=== PATIENT | female | born 1955 | race Caucasian/White ===

== ENCOUNTER 2020-10-15 14:09 | Emergency (ER) | payer BC, SELFPAY ==
[2020-10-15 14:14] VITALS: BP 165/86; PULSE 86; RESP 18; TEMP 36.8; O2SAT 97; BMI 26.0
[2020-10-15 14:19] VITALS: BP 165/90; PULSE 86; RESP 16; O2SAT 97
--- NOTE | 2020-10-15 14:47 | XRR_ITS ---
PROCEDURE INFORMATION: Exam: XR Right Finger(s) Exam date and time: 10/15/2020 3:15 PM Age: 64 years old Clinical indication: Injury or trauma; Other: Mashed; Crushing; Right; Little finger; Additional info: Trauma to pinky nail TECHNIQUE: Imaging protocol: XR Right fingers. Views: Minimum 2 views. COMPARISON: No relevant prior studies available. FINDINGS: Bones/joints: There is severe osteopenia and moderate osteoarthritis seen. An avulsion fracture is seen involving the distal aspect of the distal phalange. Narrowing of the interphalangeal joint spaces are present at multiple levels. These findings correspond to osteoarthritis Soft tissues: Normal. XR/XR finger RT min 2V [id number] IMPRESSION: 1. Avulsion fracture distal phalange of the 5th digit 2. Severe osteopenia and osteoarthritis .
--- NOTE | 2020-10-15 14:50 | ED_ITS ---
HPI - Wound/Laceration General: Chief Complaint: Wound/Laceration Stated Complaint: Smashed finger Time Seen by Provider: 10/15/20 14:23 History of Present Illness: HPI narrative: Patient was pulling nails in the hammer and got her right pinky between the back the hammer and the board and sustained a laceration across the nail. Onset (ago): hour(s) Extremity Location: Right: hand Place: home Patient tetanus UTD: No Context: accidental Associated symptoms: Reports no associated symptoms; Denies chills or fever(s) Review of Systems Const: Denies: fever(s) or chills Skin/Breast: Reports: other (Laceration right pinky) Psych: Denies: anxiety or depression Physical Exam Const: COMMON NORMALS: no acute distress Psych: COMMON NORMALS: mental status grossly normal Skin: OTHER: Quarter inch laceration across the right pinky lateral aspect across the mid nail extending into the tissue. Closed with glue and put nail back in place under glue and wrapped with Coban distal neurovascular intact Procedures Laceration Laceration 1: Site: hand Side (If applicable): right Size (cm): 1 Description: linear Depth: simple, single layer Skin layer closed with: other (Skin adhesive) Course Vital Signs: Vital signs: Vital Signs Temperature 98.2 F 10/15/20 14:14 Pulse Rate 86 10/15/20 14:19 Respiratory Rate 16 10/15/20 14:19 Blood Pressure 165/90 10/15/20 14:19 Pulse Oximetry 97 10/15/20 14:19 MDM - Wound/Laceration MDM Narrative: Medical decision making narrative: Patient has a fracture distal tuft of the pinky finger on that right hand. Laceration was closed with skin adhesive and dressing due to being an open fracture. Patient was placed on antibiotics. Plan was made with orthopedics for follow-up care. Patient had splint applied and wear splint until seen by orthopedics. Discharge Plan Discharge Patient Disposition: Home Clinical Impression: Laceration Fracture of finger of right hand Qualifiers: Encounter type: initial encounter Finger: little finger Fracture type: closed Phalanx: distal Fracture alignment: displaced Qualified Code(s): S62.636A - Displaced fracture of distal phalanx of right little finger, initial encounter for closed fracture Condition: Stable Prescriptions: New Keflex 500 mg capsule 500 mg PO TID 7 Days Qty: 21 RF: 0 Discharge Orders: Discharge ED (Routine); Ordered 10/15/20 Ordered By: Sang Sharpe Discharge Diet: Usual diet Discharge Activity: Increase activity as tolerated Patient Instructions: Finger Fracture (ED), Skin Adhesive Care (ED) Activity Restrictions/Additional Instructions: Keep dressing on can change every 24 hours. Await appointment for orthopedics for follow-up care. Take medication as directed. Can take Tylenol and ibuprofen for pain. Coding Level of Care Code ED Family Law Attorney for Chg Fwd Exam Expanded Problem Focused
[2020-10-15] MEDS: tetanus-dipt-pertussis 0.5 mL SDV IM (14:55)
--- NOTE | 2020-10-16 09:53 | DCPLANNER ---
manager of creative services had message to schedule a follow up appointment for patient with ortho. manager of creative services called the ortho clinic, spoke with Liz, gave clinic patients information. manager of creative services was told that patients information would be printed and reviewed. Clinic will call patient with appointment information.
--- NOTE | 2020-10-23 12:00 | DCPLANNER ---
manager adult called the ortho clinic to confirm that a follow up appointment had been scheduled for patient. manager adult was told that clinic was unable to speak with patient, and no voicemail set up. manager adult called and spoke with patient, she stated that her finger was doing better, and did not feel like she needed an appointment at this time.
== END 2020-10-15 15:37 | disposition home or self-care (01) ==
PROVIDERS: Emergency Provider Nurse Practitioner Family
DX: S62.636B Displaced fracture of distal phalanx of right little finger, initial encounter for open fracture (principal); W23.0XXA Caught, crushed, jammed, or pinched between moving objects, initial encounter; Z23 Encounter for immunization
CPT/HCPCS: 12001; 12002; 12345; 29130; 73140; 90471; 90715; 99281; 99283; A6446

== ENCOUNTER 2020-12-27 10:26 | Outpatient (CLI) | payer BC, SELFPAY ==
--- NOTE | 2020-12-27 10:30 | XR_ITS ---
WS: [id number] KNEE LEFT TECHNIQUE: 3 views of the left knee CLINICAL INFORMATION: left medial knee pain COMPARISON: None. FINDINGS: Osteopenia. Mild joint space narrowing medial joint compartment. Hypertrophic changes along the joint line. Hypertrophic patella. Small suprapatellar effusion. Mild soft tissue edema. XR/XR knee LT 3V* [id number] IMPRESSION: 1. Mild joint space narrowing medial joint compartment and patellofemoral aly culation. Hypertrophic patella. 2. Small suprapatellar effusion with soft tissue edema.
== END 2020-12-27 10:27 | disposition home or self-care (01) ==
LOC: RADWPI 10:44
PROVIDERS: PCP Family Medicine; Visit Provider Family Medicine
DX: M25.562 Pain in left knee (principal); M25.462 Effusion, left knee; R60.0 Localized edema
CPT/HCPCS: 73562

== ENCOUNTER 2021-01-15 08:32 | Outpatient (RCR) | payer BC, SELFPAY | END 2021-01-25 23:59 | disposition home or self-care (01) | LOC: SPT 08:32 | PROVIDERS: PCP Family Medicine; Referring Provider Family Medicine; Visit Provider Family Medicine | DX: M25.562 Pain in left knee (principal) | CPT/HCPCS: 97110; 97161 ==

== ENCOUNTER 2021-02-04 14:31 | Outpatient (CLI) | payer BC, SELFPAY ==
--- NOTE | 2021-02-04 17:30 | MR_ITS ---
WS: [id number] MRI LEFT KNEE HISTORY: lateral knee pain COMPARISON: 12/27/2020 radiographs. Anterior cruciate ligament: Abnormal signal throughout the ACL. There are a few anterior fibers remai nuzhat but there is no significant intact ligament. Posterior cruciate ligament: Intact. Medial collateral ligament: Mild increased signal surrounding the MCL and a small amount of intrasubs tance degeneration and signal proximally. Posterior lateral corner structures: Intact. Medial menisci: Complex tear posterior horn with marked fraying along the surfaces. Additional abnorm al signal in the anterior horn and intrasubstance degeneration. I believe there is a horizontal tear extending to the superior articular surface. Lateral meniscus: No tear. Extensor mechanism: Distal quadriceps tendon and patellar tendons are intact. Fluid and soft tissue: Moderate-sized joint effusion. There is soft tissue edema. Small Pearson's cyst contains small loose bodies. Osseous and articular structures: Patellofemoral compartment: Mild narrowing of patellofemoral joint space with osteophytes. Mild chond romalacia of the patella cartilage. No full-thickness defect or marrow edema. Medial compartment: Severe narrowing of the medial joint compartment. Complete loss of cartilage with marrow edema and osteophytes. Small subchondral defect in the medial condyle. Lateral compartment: Moderate narrowing of the lateral compartment with moderate-sized osteophytes. T hinning and fissuring of the cartilage with a 6 mm defect in the cartilage of the tibial plateau. MR/MR knee LT wo con* [id number] IMPRESSION: 1. Severe internal derangement medial compartment with severe loss of joint sp raquel, loss of cartilage and abnormal menisci. 2. Moderate internal derangement lateral compartment with mild thinning and fi ssuring of the cartilage. Osteophytes with no meniscal tear. 3. Torn ACL. 4. Mild MCL sprain. 5. Moderate joint effusion 6. Small Pearson's cyst with loose bodies.
== END 2021-02-04 14:32 | disposition home or self-care (01) ==
LOC: RADSHAW 14:32
PROVIDERS: PCP Family Medicine; Visit Provider Family Medicine
DX: M25.562 Pain in left knee (principal); M71.22 Synovial cyst of popliteal space [Baker], left knee; M25.462 Effusion, left knee; S83.412A Sprain of medial collateral ligament of left knee, initial encounter; S83.512A Sprain of anterior cruciate ligament of left knee, initial encounter; X58.XXXA Exposure to other specified factors, initial encounter; M23.92 Unspecified internal derangement of left knee
CPT/HCPCS: 73721

== ENCOUNTER → 2021-02-21 09:23 | Outpatient (BNVA) | payer BC, SELFPAY | PROVIDERS: PCP Family Medicine; Visit Provider Family Medicine | DX: Z79.891 Long term (current) use of opiate analgesic (principal); F90.8 Attention-deficit hyperactivity disorder, other type; R03.0 Elevated blood-pressure reading, without diagnosis of hypertension | CPT/HCPCS: 80307 ==

== ENCOUNTER → 2021-02-27 08:39 | Outpatient (BNVA) | payer BC, SELFPAY | PROVIDERS: PCP Family Medicine; Visit Provider Specialist | DX: M25.762 Osteophyte, left knee (principal); M25.761 Osteophyte, right knee; M76.52 Patellar tendinitis, left knee; M25.561 Pain in right knee; M25.562 Pain in left knee | CPT/HCPCS: 73560; 73565 ==

== ENCOUNTER → 2021-03-11 09:31 | Outpatient (BNVA) | payer BC, SELFPAY | PROVIDERS: PCP Family Medicine; Visit Provider Specialist | DX: M17.12 Unilateral primary osteoarthritis, left knee (principal); S83.412A Sprain of medial collateral ligament of left knee, initial encounter; S83.512A Sprain of anterior cruciate ligament of left knee, initial encounter; X58.XXXA Exposure to other specified factors, initial encounter; Z20.822 Contact with and (suspected) exposure to COVID-19 | CPT/HCPCS: 87635 ==

== ENCOUNTER 2021-03-15 06:24 | Day surgery (SDC) | payer BC, SELFPAY ==
[2021-03-14 15:54] VITALS: BMI 25.7
[2021-03-15] VITALS (9 sets, daily range): BP systolic 142–167; BP diastolic 84–98; PULSE 63–78; RESP 12–20; TEMP 36.2–36.6; O2SAT 96–99
--- NOTE | 2021-03-15 06:56 | W.PM.OPSUD ---
Surgery/Procedure H&P Update DATE OF PROCEDURE: March 15, 2021 DATE H&P PERFORMED: 02/27/21 H&P UPDATE INFORMATION: I have reviewed H&P completed within last 30 days, I have examined patient prior to procedure, No changes to prior documentation and H&P is in [facility] on date indicated PREOP DIAGNOSIS: Osteoarthritis and medial meniscal tear LEFT knee PLANNED PROCEDURE: Operation Date: 03/15/21 08:10 Proposed Procedures p Knee Arthroscopy with debridement 65994 M17.10 S83.512A S83.412A(Left) - Aicha Joseph MD Related Problem List Diagnoses (1) Tear of medial meniscus of left knee, current: Qualifiers: Encounter type: initial encounter Meniscus tear of knee type: complex Qualified Code(s): S83.232A - Complex tear of medial meniscus, current injury, left knee, initial encounter (2) Osteoarthritis of left knee: Qualifiers: Osteoarthritis type: primary Qualified Code(s): M17.12 - Unilateral primary osteoarthritis, left knee
[2021-03-15] MEDS: acetaminophen 1,000 MG/100 ML PIGGYBACK 400 MG IV (07:05)
[2021-03-15] MEDS: CELEcoxib 200 mg Capsule 400 MG PO (07:06)
[2021-03-15] MEDS: sodium chloride 0.9% 1,000 ML 30 ML IV (07:07)
[2021-03-15 07:13] LABS: Basophils % 0.6 %; Hematocrit 44.6 % (37.0-47.0); Hemoglobin 14.6 g/dL (11.5-15.3); Lymphocytes # 1.5 10^3/uL (0.8-4.8); Lymphocytes % 30.1 %; Mean Corpuscular HGB Conc 32.7 g/dL (30.0-36.0); Mean Corpuscular Hemoglobin 31.1 pg (28.0-34.0); Mean Corpuscular Volume 95.1 fL (81-99); Mean Platelet Volume 11.9 fL (7.4-10.4); Monocytes # 0.4 10^3/uL (0.2-0.9); Monocytes % 7.1 %; Neutrophils # 3.05 10^3/uL (1.8-7.7); Nucleated Red Blood Cells % 0 %; Platelet Count 152 10^3/cmm (130-400); Red Blood Count 4.69 10^6/uL (4.1-5.3); Red Cell Distribution Width 12.2 % (12.1-15.1); White Blood Count 4.9 10^3/uL (4.0-10.0)
--- NOTE | 2021-03-15 07:15 | ANES.PREANE2 ---
Pre-Anesthetic Assessment Pre-Anesthetic Assessment: Height/Weight: Height 1.6 m Weight 65.771 kg Temp Pulse Resp BP Pulse Ox 97.9 F 64 16 150/84 98 03/15/21 06:46 03/15/21 06:46 03/15/21 06:46 03/15/21 06:46 03/15/21 06:46 Preop Diagnosis: Osteoarthritis and medial meniscal tear LEFT knee Proposed Procedure: Operation Date: 03/15/21 08:10 Proposed Procedures p Knee Arthroscopy with debridement 88001 M17.10 S83.512A S83.412A(Left) - Aicha Joseph MD Was Beta Nando taken within 24 hours: N/A Was Clonidine taken within 24 hours: N/A Last intake: Intake Last Liquid Date 03/14/21 Last Liquid Time 18:30 Last Solid Date 03/14/21 Last Solid Time 18:30 Social: Social History: No alcohol and No tobacco Exam: Pre-Anes Outpt Exam: alert, oriented x 3, clear to auscultation bilaterally and regular rate & rhythm Airway: Submandibular: WNL Cervical ROM: WNL MP: 2 Dentition: False and Partials CV/HEM: CV/HEM: HTN Musc/skel: Musc/skel: OA/DJD Neuropsych: Neuropsych: Anxiety and Depression Anesthetic Plan: ASA status: 2 Anesthesia: General Risk of > 500 ml blood loss (7ml/kg in children): No PFSH Anesthesia PFSH: Medical History ADHD Anxiety and depression Surgical History H/O knee surgery Both - arthroscopic - torn meniscus Family History Other Diabetes Social History Smoking and tobacco status: never smoked Alcohol intake: never Data Anesthesia CBC & Chem 7: 03/15/21 06:53 03/15/21 06:53 Other Labs: Laboratory Results - last 48 hr 03/15/21 06:53 WBC 4.9 RBC 4.69 Hgb 14.6 Hct 44.6 MCV 95.1 MCH 31.1 MCHC 32.7 RDW 12.2 Plt Count 152 MPV 11.9 H Neut % (Auto) 62.0 Lymph % (Auto) 30.1 [place] % (Auto) 7.1 Eos % (Auto) 0.0 Baso % (Auto) 0.6 Neut # (Auto) 3.05 Lymph # (Auto) 1.5 [place] # (Auto) 0.4 Eos # (Auto) 0.0 Baso # (Auto) 0.0 Nucleated RBC % (auto) 0 Nucleated RBCs # 0.0 Cardiac Studies: No Data to Display
[2021-03-15 07:28] LABS: Alanine Aminotransferase 30 U/L (0-33); Alkaline Phosphatase 121 IU/L (35-105); Anion Gap 11.8 (5-19); Aspartate Amino Transferase 28 U/L (0-32); Blood Urea Nitrogen 20 mg/dL (8-23); Calcium 8.6 mg/dL (8.5-10.5); Carbon Dioxide 27 mmol/L (22-29); Chloride 106 mmol/L (98-107); Creatinine Clr Calc Pharmacy 87.4915; Globulin 2.4 g/dL (1.3-4.6); Glucose 103 mg/dL (65-115); Osmolality Calculated 295 mOsm/kg (285-295); Potassium 3.8 mmol/L (3.5-5.1); Sodium 141 mmol/L (136-145); Total Bilirubin 0.4 mg/dL (0.15-1.2); Total Protein 6.4 g/dL (6.6-8.7)
[2021-03-15 07:43] LABS: Add Urine Microscopic? NO; Charge for UA Resulting for Rev
[2021-03-15 08:00] LABS: Bilirubin Urine Neg (Negative); Blood Urine Neg (Negative); Glucose Urine UA Norm (Normal); Ketones Urine Negative (Negative); Leukocyte Esterase Urine Negative (Negative); Nitrate Urine Negative (Negative); Protein Urine Neg (Negative); Urine Appearance Clear (CLEAR); Urine Color Yellow (Yellow); Urobilinogen Urine Norm (Negative); pH Urine 5 (5-7)
[2021-03-15] MEDS: morphine 4 mg/mL SDV 1 mL 8 MG IM (09:02)
--- NOTE | 2021-03-15 09:29 | P.OP_ITS ---
Operative Report Date of procedure: March 15, 2021 Pre-op Diagnosis: Osteoarthritis and medial meniscal tear LEFT knee Post-op diagnosis: other Post-op Diagnosis: Osteoarthritis with medial and lateral meniscal tears LEFT knee Post-op Findings: Severe degenerative osteoarthritis of the left knee involving primarily the medial compartment. Also the patellofemoral compartment and lateral compartment were affected. Anterior cruciate ligament with significant thinning and tearing. Procedure Done: Left arthroscopic knee surgery with partial medial and lateral meniscectomies, debridement of osteoarthritis medial, lateral, and patellofemoral compartments. Debridement of torn anterior cruciate ligament. Implants: None Specimens removed/disposition: Meniscal fragments, disposed of Pathology: none sent Surgeon: A[facility] Director: None Anesthesia: General (Per LMA, ASA 2) Estimated blood loss (mL): 5 Tourniquet time (min): 40 Tourniquet time: At 250 mmHg IV fluids (mL): 1,000 Urine output (mL): 0 Urine output: No Phipps Complications: None Findings: Osteoarthritic changes throughout the knee, primarily involving the medial compartment, but also involving the lateral and patellofemoral compartments. Meniscal tears were in the midportion medial and lateral meniscus, complex. Partially torn anterior cruciate ligament. Condition: stable Disposition: PACU (Then to same-day surgery for discharge to home) Brief History: This 65-year-old woman presented with complaints of left knee pain. Previously, she had undergone arthroscopic intervention to her right knee successfully treating her osteoarthritis and meniscal tears. The patient wished to proceed with arthroscopic intervention. Risks and complications were discussed with her. The potential for aggravation of her osteoarthritic change was also discussed with her. Consents were signed preoperatively. Questions were answered. Procedure: Patient was brought to the operating theater and after undergoing adequate general anesthesia per LMA, ASA 2, the patient's left lower extremity was prepped and draped in usual fashion utilizing DuraPrep. A tourniquet was placed high on the leg prior to prepping and draping. The tourniquet was elevated prior to commencement of the surgical procedure to 250 mmHg. Total tourniquet time was 40 minutes. Elevation followed prepping and exsanguination. Prior to commencement of the surgical procedure, a surgical pause was performed. At the time of the surgical pause, we identified the site and side of surgery. We also confirm the patient's identity and appropriate and timely administration of preoperative antibiotics, Ancef 2 g. Preoperative surgical markings were also visualized at this time. Standard arthroscopic portals were utilized including superolateral, inferomedial, and inferolateral portals. The examination commenced in the suprapatellar pouch area where the patient was noted to have synovitis and significant osteoarthritic changes involving both the trochlear groove and patella with significant chondromalacia of both. The arthroscope was then p assed in the medial compartment where there was noted to be a complex tear of the medial meniscus involving the posterior half of the meniscus. There also was significant degenerative osteoarthritis involving the medial femoral condyle. The arthroscope was then passed across the notch area where anterior cruciate ligament was visualized and found to have a split and after subsequent debridement of synovium about the anterior cruciate ligament, there was noted to be significant thinning and partial tearing. The scope was passed into the lateral compartment with the knee in a [id number] position. Lateral meniscus was noted to have a tear in the midportion which was complex and degenerative. A combination of basket forceps, intra-articular shaver, and the intra-articular heat wand were used to address the lateral meniscal tear. This was accomplished without difficulty. The meniscus was then palpated and found to not be displaceable into the joint. Scope was then returned to the medial compartment where the medial meniscal tear was addressed again with a combination of basket forceps, intra-articular shaver, and the intra-articular heat wand. Also, chondroplasty was performed of the medial femoral condyle. The meniscus was palpated and found to be not displaceable into the knee joint. The arthroscope was then returned to the patellofemoral joint where a chondroplasty was performed of the undersurface of the patella, and synovium was debrided. This chondroplasty involved use of the intra-articular shaver as well as the heat wand. Once the patella had been addressed, the scope was passed back through the knee compartments to evaluate for other abnormalities. Finding none, attention was directed to closure. The knee was copiously irrigated and suctioned dry. Following this, each portal was closed with a simple suture followed by Dermabond and OpSite. Additionally, the knee was injected with 20 mL of half percent ropivacaine and 8 mg of morphine. Additional 10 mL of ropivacaine was placed about the portals. Sterile dressing was placed consisting of the OpSite followed by soft roll and an Jose wrap. Patient was returned to Recovery Room in satisfactory condition where she will be discharged home to follow-up with me in the office as scheduled. There were n complications and no specimens. Associated Problem List Diagnoses (1) Tear of medial meniscus of left knee, current: Qualifiers: Encounter type: initial encounter Meniscus tear of knee type: complex Qualified Code(s): S83.232A - Complex tear of medial meniscus, current injury, left knee, initial encounter (2) Osteoarthritis of left knee: Qualifiers: Osteoarthritis type: primary Qualified Code(s): M17.12 - Unilateral primary osteoarthritis, left knee (3) Tear of lateral meniscus of left knee:
[2021-03-15] MEDS: HYDROcodone-acetaminophen 5-325 mg Tablet 1 TAB PO (10:27)
--- NOTE | 2021-03-15 14:21 | ANE.PACU2 ---
Inpatient post-anesthesia follow up: Airway intact: Yes Vital signs: Temperature 97.9 F Pulse Rate 63 Respiratory Rate 16 Blood Pressure 156/96 Pulse Oximetry 97 Oxygen Delivery Me thod Room Air Oxygen Flow Rate 6 Fraction of Inspir ed Oxygen Hydration adequate: Yes Nausea and vomiting: No Pain level: 2 Mental status: Baseline
== END 2021-03-15 10:45 | disposition home or self-care (01) ==
PROVIDERS: PCP Family Medicine; Visit Provider Specialist
PROC: (CPT 29870; principal; 2021-03-15 08:00)
DX: M17.12 Unilateral primary osteoarthritis, left knee (principal); S83.232A Complex tear of medial meniscus, current injury, left knee, initial encounter; S83.282A Other tear of lateral meniscus, current injury, left knee, initial encounter; X58.XXXA Exposure to other specified factors, initial encounter; I10 Essential (primary) hypertension; F41.9 Anxiety disorder, unspecified; F32.9 Major depressive disorder, single episode, unspecified
CPT/HCPCS: 29880; 36415; 80053; 81003; 85025; J0690; J1100; J2250; J2270; J2370; J2405; J2704; J2795; J3010; J3490; J7030

== ENCOUNTER 2021-11-05 10:21 | Outpatient (CLI) | payer BC, SELFPAY ==
--- NOTE | 2021-11-05 10:32 | MM_ITS ---
WS: [id number] BILATERAL SCREENING DIGITAL MAMMOGRAM WITH CAD HISTORY: SCREENING COMPARISON: 06/15/2019 and 03/23/2017 Bilateral CC and MLO views submitted. Computer aided detection analyzed. Breast composition: There are scattered areas of fibroglandular density. No suspicious masses, microc alcifications or architectural distortion. Benign calcifications LEFT breast. MM/[place] [id number] IMPRESSION: BI-RADS: 2-Benign FOLLOW UP: 1 Year Follow-up
== END 2021-11-05 10:22 | disposition home or self-care (01) ==
PROVIDERS: PCP Family Medicine; Visit Provider Nurse Practitioner Family
DX: Z12.31 Encounter for screening mammogram for malignant neoplasm of breast (principal)
CPT/HCPCS: 77067

== ENCOUNTER 2021-11-24 17:55 | Emergency (ER) | payer BC, SELFPAY ==
[2021-11-24 17:59] VITALS: BP 162/101; PULSE 98; RESP 16; TEMP 36.6; O2SAT 99; BMI 27.4
--- NOTE | 2021-11-24 18:05 | XRR_ITS ---
PROCEDURE INFORMATION: Exam: XR Left Tibia and Fibula Exam date and time: 11/24/2021 6:05 PM Age: 66 years old Clinical indication: Pain and injury or trauma; Other: Rock hit left watt; Blunt trauma; Lower leg; Additional info: Pain, injury TECHNIQUE: Imaging protocol: XR Left tibia and fibula. Views: 2 views. COMPARISON: No relevant prior studies available. FINDINGS: Bones/joints: No fracture or other acute osseous abnormality. Soft tissues: Anterior soft tissue edema noted. XR/XR tibia fibula LT 2V [id number] IMPRESSION: 1. Anterior soft tissue edema noted. 2. No acute fracture demonstrated.
--- NOTE | 2021-11-24 18:07 | ED_ITS ---
HPI - Fall General: Chief Complaint: Fall Stated Complaint: Left leg pain Time Seen by Provider: 11/24/21 18:04 History of Present Illness: Patient fell backward today while holding a large rock and rock came down on her watt and now she complains about swelling and pain to anterior watt left leg. Associated symptoms-after fall: Denies abdominal pain, chest pain or headache(s) Review of Systems Const: Denies: fever(s), chills or body aches Eyes: Denies: eye discomfort ENMT: Denies: throat pain Card: Denies: chest pain Resp: Denies: dyspnea GI: Denies: abdominal pain, nausea or vomiting Musc: Reports: extremity pain (Left lower extremity) and extremity swelling Skin/Breast: Denies: rash Neuro: Denies: headache(s) Psych: Denies: depression or suicidal ideation [facility] ED PFSH: Medical History (Updated 11/24/21 @ 18:21 by CAPO Mo) ADHD Allergic rhinitis Anxiety and depression Attention and concentration deficit Psychiatric care Sinus headache Sinusitis Surgical History H/O knee surgery Both - arthroscopic - torn meniscus Family History Other Diabetes Social History Smoking and tobacco status: never smoked Second hand smoke exposure: No Alcohol intake: never Physical Exam Const: COMMON NORMALS: no acute distress, patient oriented x3 and alert HENMT: COMMON NORMALS: normocephalic and external ears normal HEAD & SCALP: normocephalic EXTERNAL EAR: Yes external ears normal Eye: COMMON NORMALS: EOMs intact bilaterally Neck/C-Spine: COMMON NORMALS: no JVD Resp: COMMON NORMALS: normal respiratory effort and No use of accessory muscles Cardio: COMMON NORMALS: no JVD GI: INSPECTION: Yes normal to inspection Extremity: COMMON NORMALS: full ROM LEFT LOWER EXTREMITY: Yes lower leg (Swelling and tenderness to left anterior watt upper third. Slight contusio) Left lower leg: Yes neurovascular exam (Intact.) Neuro: COMMON NORMALS: patient oriented x3 SENSORIUM/ORIENTATION: Yes alert Psych: COMMON NORMALS: mental status grossly normal Skin: COMMON NORMALS: no rashes or lesions noted GENERAL SKIN EXAM: no ra shes or lesions noted Course Vital Signs: Vital signs: Vital Signs Temperature 97.9 F 11/24/21 17:59 Pulse Rate 98 11/24/21 17:59 Respiratory Rate 16 11/24/21 17:59 Blood Pressure 162/101 11/24/21 17:59 Pulse Oximetry 99 11/24/21 17:59 MDM - Fall Medical Decision Making Left leg contusion Discharge Plan Discharge Patient Disposition: Home Clinical Impression: Contusion Qualifiers: Encounter type: initial encounter Contusion area: lower leg Laterality: left Qualified Code(s): S80.12XA - Contusion of left lower leg, initial encounter Condition: Stable Prescriptions: No Action aspirin [Adult Aspirin Regimen] 81 mg tablet,delayed release (DR/EC) 81 mg PO DAILY 0RF Hold Instructions: Resume on 04/12/21. Resume after 30 days of full dose aspirin omega-3 fatty acids [Fish Oil Concentrate] 1,000 mg capsule 1,000 mg PO DAILY 0RF black cohosh 200 mg capsule 200 mg PO DAILY 0RF calcium carbonate [Feng-Mint] 260 mg calcium (650 mg) tablet,chewable 260 mg PO DAILY 0RF multivitamin Tablet 1 tab PO QAM 0RF biotin 1 mg capsule 1 mg PO DAILY 0RF Saccharomyces boulardii [Daily Probiotic (S. boulardii)] 250 mg capsule 250 mg PO DAILY 0RF duloxetine [Cymbalta] 60 mg capsule,delayed release(DR/EC) 60 mg PO DAILY Qty: 30 2RF fluoxetine 20 mg capsule 60 mg PO DAILY Qty: 90 2RF triamcinolone acetonide [Aller-Daniel] 55 mcg aerosol,spray 1 spray intranasal BID Qty: 16.9 3RF Rx Instructions: administer into each nostril lisdexamfetamine 20 mg capsule 20 mg PO QAM 30 Days Qty: 30 0RF Discharge Orders: Discharge ED (Routine); Ordered 11/24/21 Ordered By: Sang Sharpe Referrals: Oz Adams MD [Primary Care Provider] - Discharge Diet: Usual diet Discharge Activity: Increase activity as tolerated Patient Instructions: Contusion in Adults (ED) Activity Restrictions/Additional Instructions: Wear compression socks. Use ice as necessary next 24 hours. Can take Tylenol for discomfort. Follow-up your primary care provider if no significant improvement. Coding Level of Care Code ED Distance Learning Program Coordinator for Chg Fwd Exam Comprehensive
[2021-11-24] MEDS: CELEcoxib 200 mg Capsule 400 MG PO (18:33)
[2021-11-24 18:35] VITALS: BP 146/89; PULSE 69; RESP 17; O2SAT 95
== END 2021-11-24 18:37 | disposition home or self-care (01) ==
PROVIDERS: Emergency Provider Nurse Practitioner Family; PCP Internal Medicine
DX: S80.12XA Contusion of left lower leg, initial encounter (principal); Z79.82 Long term (current) use of aspirin; W20.8XXA Other cause of strike by thrown, projected or falling object, initial encounter
CPT/HCPCS: 73590; 99283

== ENCOUNTER 2021-12-27 12:33 | Outpatient (CLI) | payer BC, SELFPAY ==
--- NOTE | 2021-12-27 12:48 | XR_ITS ---
WS: [id number] Exam: XR lumbar spine 6V w f/e [id number] Date/Time of Exam: 12/27/2021 12:49 PM Reason For Exam: BACK PAIN, LOW No acute fracture or dislocation. Mild dextroscoliosis. Degenerative disc changes at L4-5 and L5-S1. No significant flexion or extension instability. Facet DJD at all levels. Mild spondylosis. Aleisha jay XR/XR lumbar spine 6V w f/e [id number] IMPRESSION: 1. No acute fracture or malalignment. No instability identified. 2. Degenerative changes and mild scoliosis.
== END 2021-12-27 12:34 | disposition home or self-care (01) ==
PROVIDERS: PCP Nurse Practitioner Family; Visit Provider Family Medicine
DX: M54.50 Low back pain, unspecified (principal)
CPT/HCPCS: 72114

== ENCOUNTER 2022-07-30 15:45 | Emergency (ER) | payer BC, SELFPAY ==
[2022-07-30 15:53] VITALS: BP 174/136; PULSE 86; RESP 18; TEMP 36.6; O2SAT 97; BMI 26.5
--- NOTE | 2022-07-30 16:05 | W.ED.WOUNDLC ---
HPI - Wound/Laceration General: Chief Complaint: Wound/Laceration Stated Complaint: Left middle finger lac Time Seen by Provider: 07/30/22 15:59 History of Present Illness: Patient is a 66-year-old female comes to the ED with a laceration to finger. 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 Patient is up-to-date on her tetanus. Associated symptoms: Denies chills, fever(s), nausea or vomiting Review of Systems Const: Denies: fever(s), chills or fatigue Eyes: Denies: change in vision or eye discomfort ENMT: Denies: throat pain, odynophagia, nasal discharge or nasal congestion Card: Denies: chest pain, palpitations, edema, swelling of feet/ankles, dyspnea on exertion or orthopnea Resp: Denies: dyspnea, productive cough or non-productive cough GI: Denies: abdominal pain, nausea, vomiting, diarrhea, constipation or hematochezia : Denies: flank pain, dysuria or hematuria Musc: Denies: neck pain, back pain or extremity swelling Skin/Breast: Reports: new lesions (Laceration to middle finger); Denies: rash Neuro: Denies: headache(s), numbness in extremities or weakness in extremities PFSH ED PFSH: Medical History ADHD Allergic rhinitis Anxiety and depression Attention and concentration deficit Psychiatric care Sinus headache Sinusitis Surgical History H/O knee surgery Both - arthroscopic - torn meniscus Family History Other Diabetes Social History Smoking and tobacco status: never smoked Second hand smoke exposure: No Alcohol intake: never Physical Exam Const: COMMON NORMALS: no acute distress, patient oriented x3, healthy appearing and alert GENERAL APPEARANCE: cooperative and comfortable HENMT: COMMON NORMALS: normocephalic HEAD & SCALP: normocephalic MOUTH: Normal oral and palatal mucosa present THROAT: posterior oropharynx normal and uvula midline Neck/C-Spine: COMMON NORMALS: supple GENERAL: Yes normal visual inspection Resp: COMMON NORMALS: normal respiratory effort, No retractions, No use of accessory muscles and clear to auscultation bilaterally AUSCULTATION: clear to auscultation bilaterally Cardio: COMMON NORMALS: regular rate, regular rhythm, S1 normal heart sound present, S2 normal heart sound present, No gallops present (Cardio), No clicks present (Cardio), No murmurs present (Cardio) and Peripheral pulses 2+ throughout RATE: regular rate RHYTHM: regular rhythm HEART SOUNDS: S1 normal heart sound present and S2 normal heart sound present PERIPHERAL PULSES: Peripheral pulses 2+ throughout GI: COMMON NORMALS: Normal to inspection, nondistended, normoactive bowel sounds present, Soft to palpation, non-tender and no masses PALPATION: Yes Soft to palpation : COMMON NORMALS: Yes no CVA tenderness BLADDER/KIDNEY EXAM: Yes no CVA tenderness Back/Pelvis: COMMON NORMALS: no CVA tenderness Extremity: NARRATIVE EXTREMITY EXAM: Left hand?third digit distal pad has a superficial 1 cm linear laceration. Minimal active bleeding noted. No nailbed or nail damage noted. Neuro: COMMON NORMALS: patient oriented x3 SENSORIUM/ORIENTATION: Yes alert GAIT: Yes Normal gait present Skin: GENERAL SKIN EXAM: dry skin Procedures Laceration Laceration 1: Site: hand (left hand- 3rd digit) Side (If applicable): left Size (cm): 1 Description: linear Depth: simple, single layer Local Anesthetic: lidocaine 2% Amount of anesthesia used (mL): 2 Pre-repair: irrigated extensively (With normal saline) Skin layer closed with: nylon Size (cm): 4-0 Number of sutures: 3 Technique: simple, interrupted Course Vital Signs: Vital signs: Vital Signs Temperature 97.9 F 07/30/22 15:53 Pulse Rate 86 07/30/22 15:53 Respiratory Rate 18 07/30/22 15:53 Blood Pressure 174/136 07/30/22 15:53 Pulse Oximetry 97 07/30/22 15:53 Oxygen Delivery Me thod 07/30/22 15:53 MDM - Wound/Laceration Medical Decision Making Patient is a 66-year-old female comes to the ED with superficial 1 cm linear laceration to third digit. No nailbed or nail damage noted. Lidocaine 2% was used as local and wound was irrigated extensively with normal saline. 3 sutures were placed to close laceration site. See procedure note for details. X-ray of left hand showed no acute fractures. Patient was discharged home with a prophylactic prescription of cephalexin. Patient was instructed on how to care for laceration and to have sutures removed in 7 to 10 days. Return to ED precautions given. Patient understood and agreed with plan. Lab Data Radiology Impressions Hand X-Ray 07/30/22 16:31 IMPRESSION: No acute skeletal finding. Discharge Plan Discharge Patient Disposition: Home Clinical Impression: Finger laceration Qualifiers: Encounter type: initial encounter Finger: middle finger Damage to nail status: without damage Foreign body presence: without foreign body Laterality: left Qualified Code(s): S61.213A - Laceration without foreign body of left middle finger without damage to nail, initial encounter Condition: Stable Prescriptions: New cephalexin 500 mg capsule 500 mg PO Q6H 4 Days Qty: 16 0RF No Action aspirin [Adult Aspirin Regimen] 81 mg tablet,delayed release (DR/EC) 81 mg PO DAILY Hold Instructions: Resume on 04/12/21. Resume after 30 days of full dose aspirin omega-3 fatty acids [Fish Oil Concentrate] 1,000 mg capsule 1,000 mg PO DAILY black cohosh 200 mg capsule 200 mg PO DAILY calcium carbonate [Feng-Mint] 260 mg calcium (650 mg) tablet,chewable 260 mg PO DAILY multivitamin Tablet 1 tab PO QAM biotin 1 mg capsule 1 mg PO DAILY Saccharomyces boulardii [Daily Probiotic (S. boulardii)] 250 mg capsule 250 mg PO DAILY triamcinolone acetonide [Aller-Daniel] 55 mcg aerosol,spray 1 spray intranasal BID Qty: 16.9 3RF Rx Instructions: administer into each nostril hydrochlorothiazide 12.5 mg capsule 12.5 mg PO DAILY fluoxetine 20 mg capsule 60 mg PO DAILY 30 Days Qty: 90 3RF dextroamphetamine-amphetamine 10 mg tablet 10 mg PO BID 30 Days Qty: 60 0RF Rx Instructions: take with 5mg tablet bid for rx of 15mg po BID dextroamphetamine-amphetamine [Adderall] 5 mg tablet 5 mg PO BID 30 Days Qty: 60 0RF Rx Instructions: take with 10mg tablet bid for rx of 15mg po BID Discharge Orders: Discharge ED (Routine); Ordered 07/30/22 Ordered By: Srege Henriquez Referrals: Rebecca Diego, BOTTLE BLOWER [Primary Care Provider] - Discharge Diet: Regular Discharge Activity: Limit activity as instructed Patient Instructions: Finger Laceration (ED) Activity Restrictions/Additional Instructions: Take full course of antibiotics as prescribed. Keep laceration site clean and dry. Clean daily with soap and water and then apply and then cover with bandage. Watch for signs of infection such as redness, warmth, increased tenderness and puslike drainage. If you see the signs of infection return to the ED, urgent care or PCP for reevaluation. call your PCP to schedule a follow-up appointment for reevaluation and suture removal in about 7-10 days. Continue taking all home meds. Follow discharge plans as discussed. You can return to the ED if symptoms worsen. 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
--- NOTE | 2022-07-30 16:31 | XRR_ITS ---
PROCEDURE INFORMATION: Exam: XR Left Hand Exam date and time: 07/30/2022 4:47 PM Age: 66 years old Clinical indication: Injury or trauma; Other: Laceration; Hand; Left; Additional info: Injury to middle finger TECHNIQUE: Imaging protocol: Radiologic exam of the Left hand. Views: 3 or more views. COMPARISON: No relevant prior studies available. FINDINGS: Bones/joints: The bones are intact and in normal alignment. Hypertrophic degenerative changes of the 1st through 4th distal interphalangeal joints, most likely osteoarthritis. Soft tissues: Soft tissue gas in the tip of the 3rd finger. XR/XR hand LT min 3V* [id number] IMPRESSION: No acute skeletal finding.
[2022-07-30] MEDS: neomycin-poly-bacitracin oint 28 gm 1 APPLIC TOPICAL (17:03)
== END 2022-07-30 17:04 | disposition home or self-care (01) ==
PROVIDERS: Emergency Provider Physician Assistant; PCP Nurse Practitioner Family
DX: S61.213A Laceration without foreign body of left middle finger without damage to nail, initial encounter (principal); Z79.82 Long term (current) use of aspirin; W29.8XXA Contact with other powered hand tools and household machinery, initial encounter
CPT/HCPCS: 12001; 73130; 99283

== ENCOUNTER 2022-08-07 09:23 | Emergency (ER) | payer BC, SELFPAY ==
[2022-08-07 09:30] VITALS: BP 170/102; PULSE 64; RESP 20; TEMP 36.6; O2SAT 97; BMI 20.3
--- NOTE | 2022-08-07 09:49 | XR_ITS ---
WS: [id number] Right knee, 3 views, 08/07/2022 Clinical Data: trauma Comparison: Both knees, left knee, 02/27/2021 Findings: There is irregularity of the lateral aspect of the lateral tibial plateau which could represent a min imal tibial plateau fracture. There are spurs of the medial and lateral femoral condyle and medial an d lateral tibial plateau. There is narrowing of the medial and lateral joint spaces. The posterior pa tella shows spurring. XR/XR knee RT 3V* [id number] Impression: 1. Possible fracture of the lateral tibial plateau of the left knee. 2. Osteoarthritis of the left knee
--- NOTE | 2022-08-07 09:54 | W.ED.EXTPRO ---
HPI - Extremity Problem General: Chief complaint: Extremity Injury, Lower Stated complaint: right knee pain Time Seen by Provider: 08/07/22 09:41 History of Present Illness: 66-year-old female presents with right knee pain. Patient reports that yesterday she stepped on a twig while using her leaf blower. That when she stepped on a rolled and it caused her to fall and twist her right knee. Patient reports that she is got pain around the generalized knee area mainly on the medial lateral aspect. She reports that she does not want to extend it or bend it. She does have some mild swelling. Patient has been using crutches to ambulate. Associated symptoms: Deny chest pain, fever(s) or rash Review of Systems Const: Denies: fever(s) or chills Eyes: Denies: change in vision or blurry vision ENMT: Denies: throat pain or dental pain Card: Denies: chest pain or palpitations Resp: Denies: dyspnea or productive cough GI: Denies: abdominal pain, nausea or vomiting : Denies: flank pain Musc: Reports: joint pain, joint swelling and other (Please see HPI) Skin/Breast: Denies: rash or pruritus Neuro: Denies: headache(s) or dizziness PFSH ED PFSH: Medical History ADHD Allergic rhinitis Anxiety and depression Attention and concentration deficit Psychiatric care Sinus headache Sinusitis Surgical History H/O knee surgery Both - arthroscopic - torn meniscus Family History Other Diabetes Social History Smoking and tobacco status: never smoked Second hand smoke exposure: No Alcohol intake: never Physical Exam Const: COMMON NORMALS: no acute distress, patient oriented x3, no limitations and alert HENMT: COMMON NORMALS: normocephalic and hearing grossly normal bilaterally HEAD & SCALP: normocephalic Eye: COMMON NORMALS: EOMs intact bilaterally and conjunctivae normal CONJUNCTIVA: Yes conjunctivae normal Resp: COMMON NORMALS: normal respiratory effort, No use of accessory muscles and clear to auscultation bilaterally AUSCULTATION: clear to auscultation bilaterally Cardio: COMMON NORMALS: regular rate and regular rhythm RATE: regular rate RHYTHM: regular rhythm GI: COMMON NORMALS: Soft to palpation and non-tender PALPATION: Yes Soft to palpation Extremity: RIGHT LOWER EXTREMITY: Yes knee joint (Mild diffuse tenderness with mild swelling. Resistance to both flexion and) Neuro: COMMON NORMALS: patient oriented x3, no focal motor deficits and no sensory deficits noted SENSORIUM/ORIENTATION: Yes alert Psych: COMMON NORMALS: mental status grossly normal, Normal thought process present, cooperative and normal affect THOUGHT PROCESS: Normal thought process present Course Vital Signs: Vital signs: Vital Signs Temperature 97.8 F 08/07/22 09:30 Pulse Rate 65 08/07/22 10:45 Respiratory Rate 16 08/07/22 10:45 Blood Pressure 195/103 08/07/22 10:45 Pulse Oximetry 100 08/07/22 10:45 Oxygen Delivery Me thod 08/07/22 09:30 MDM - Extremity (Nontraumatic) Medical Decision Making Patient's x-ray is concerning for a possible tibial plateau fracture of the left knee. Patient to be placed in a knee immobilizer and set up with a orthopedic consult. Patient will be provided a couple days of pain medication. Patient stable and discharged Lab Data Radiology Impressions Knee X-Ray 08/07/22 09:49 Impression: 1. Possible fracture of the lateral tibial plateau of the left knee. 2. Osteoarthritis of the left knee Discharge Plan Discharge Patient Disposition: Home Clinical Impression: Closed fracture of tibial plateau Qualifiers: Encounter type: initial encounter Laterality: right Qualified Code(s): S82.141A - Displaced bicondylar fracture of right tibia, initial encounter for closed fracture Condition: Stable Prescriptions: New hydrocodone-acetaminophen 5-325 mg tablet 1 tab PO Q8H PRN (Reason: pain) Qty: 10 0RF No Action aspirin [Adult Aspirin Regimen] 81 mg tablet,delayed release (DR/EC) 81 mg PO DAILY Hold Instructions: Resume on 04/12/21. Resume after 30 days of full dose aspirin omega-3 fatty acids [Fish Oil Concentrate] 1,000 mg capsule 1,000 mg PO DAILY black cohosh 200 mg capsule 200 mg PO DAILY calcium carbonate [Feng-Mint] 260 mg calcium (650 mg) tablet,chewable 260 mg PO DAILY multivitamin Tablet 1 tab PO QAM biotin 1 mg capsule 1 mg PO DAILY Saccharomyces boulardii [Daily Probiotic (S. boulardii)] 250 mg capsule 250 mg PO DAILY triamcinolone acetonide [Aller-Daniel] 55 mcg aerosol,spray 1 spray intranasal BID Qty: 16.9 3RF Rx Instructions: administer into each nostril hydrochlorothiazide 12.5 mg capsule 12.5 mg PO DAILY fluoxetine 20 mg capsule 60 mg PO DAILY 30 Days Qty: 90 3RF dextroamphetamine-amphetamine 10 mg tablet 10 mg PO BID 30 Days Qty: 60 0RF Rx Instructions: take with 5mg tablet bid for rx of 15mg po BID dextroamphetamine-amphetamine [Adderall] 5 mg tablet 5 mg PO BID 30 Days Qty: 60 0RF Rx Instructions: take with 10mg tablet bid for rx of 15mg po BID Discharge Orders: Discharge ED (Routine); Ordered 08/07/22 Ordered By: Santosh Eaton Referrals: Rebecca Diego, TOP FLAVOR ATTENDANT [Primary Care Provider] - Discharge Diet: Advance as tolerated Discharge Activity: Use walker/crutches as instructed Patient Instructions: Fractures - Knee, Opioid Safety, Pain Management Activity Restrictions/Additional Instructions: Please use crutches when ambulating, please limit weight to the right leg until seen by internet database specialist and cleared Coding Level of Care Code ED Strapper for Louis Fwliz Exam Comprehensive
[2022-08-07 10:45] VITALS: BP 195/103; PULSE 65; RESP 16; O2SAT 100
[2022-08-07] MEDS: ketorolac 30 mg/mL INJ 15 MG IM (10:52)
--- NOTE | 2022-08-07 12:05 | DCPLANNER ---
Addendum entered by India Mendoza 08/19/22 13:28: Patient had a follow up appointment scheduled for 08.11.[address] Joseph at ortho - patient did attend appointment. Original Note: global project manager had message to schedule a follow up appointment for patient with ortho. global project manager sent patients information to the front office staff at ortho. Patients information will be printed and reviewed. Clinic will call patient with appointment information.
== END 2022-08-07 11:04 | disposition home or self-care (01) ==
PROVIDERS: Emergency Provider Student in an Organized Health Care Education/Training Program; PCP Nurse Practitioner Family
DX: S82.141A Displaced bicondylar fracture of right tibia, initial encounter for closed fracture (principal); Z79.82 Long term (current) use of aspirin; X50.1XXA Overexertion from prolonged static or awkward postures, initial encounter
CPT/HCPCS: 29530; 73562; 96372; 99283; J1885

== ENCOUNTER 2022-08-11 06:00 | Outpatient (CLI) | payer BC, SELFPAY | END 2022-08-11 06:01 | disposition home or self-care (01) | LOC: SPT 08-23 10:24 | PROVIDERS: PCP Nurse Practitioner Family; Visit Provider Specialist | DX: Z46.89 Encounter for fitting and adjustment of other specified devices (principal); S82.141D Displaced bicondylar fracture of right tibia, subsequent encounter for closed fracture with routine healing; X58.XXXD Exposure to other specified factors, subsequent encounter | CPT/HCPCS: 97760; L1832 ==

== ENCOUNTER 2022-08-18 06:42 | Outpatient (CLI) | payer BC, SELFPAY ==
--- NOTE | 2022-08-18 06:45 | CT_ITS ---
WS: [id number] CT RIGHT KNEE, NONCONTRAST. HISTORY: Pain after twisting injury 2 weeks ago. Technique: All CT scans at [facility] use at least one of these dose optimization techniques: automated exposure control; mA and/or kV adjustment per patient size (includes targeted exams where dose is matched to clinical indication); or iterative reconstruction. DLP: 370.52 mGy.cm COMPARISON: RIGHT knee radiograph 08/07/2022 Nondisplaced fracture involving the posterior lateral tibial plateau. Approximately 2 mm depression a long the fracture line. Fracture is predominantly posterior and extends to the mid articular surface of the lateral plateau. No fragmentation. No additional fractures. Mild joint space narrowing and marginal osteophyte development. Normal position of the patella. There is a small joint effusion. Small Pearson's cyst. CT/CT knee RT wo con* [id number] IMPRESSION: 1. Acute posterior lateral tibial plateau fracture. Proximal 2 mm depression a long the fracture line. 2. Small joint effusion and small Pearson's cyst. 3. Mild tricompartment osteoarthritis.
== END 2022-08-18 06:43 | disposition home or self-care (01) ==
PROVIDERS: PCP Nurse Practitioner Family; Visit Provider Specialist
DX: X58.XXXA Exposure to other specified factors, initial encounter; M25.461 Effusion, right knee; M71.21 Synovial cyst of popliteal space [Baker], right knee; S82.141A Displaced bicondylar fracture of right tibia, initial encounter for closed fracture; M17.9 Osteoarthritis of knee, unspecified
CPT/HCPCS: 73700

== ENCOUNTER → 2022-09-24 08:05 | Outpatient (BNVA) | payer BC, SELFPAY | PROVIDERS: PCP Nurse Practitioner Family; Visit Provider Specialist | DX: S82.121A Displaced fracture of lateral condyle of right tibia, initial encounter for closed fracture (principal); X58.XXXA Exposure to other specified factors, initial encounter | CPT/HCPCS: 73562 ==

== ENCOUNTER 2022-09-24 11:50 | Outpatient (CLI) | payer BC, SELFPAY | END 2022-09-24 11:51 | disposition home or self-care (01) | LOC: SPT 11:50 | PROVIDERS: PCP Nurse Practitioner Family; Visit Provider Specialist | DX: Z46.89 Encounter for fitting and adjustment of other specified devices (principal); S82.121D Displaced fracture of lateral condyle of right tibia, subsequent encounter for closed fracture with routine healing; X58.XXXD Exposure to other specified factors, subsequent encounter | CPT/HCPCS: 97760; L1812 ==

== ENCOUNTER 2022-09-26 12:38 | Outpatient (CLI) | payer BC, SELFPAY ==
--- NOTE | 2022-09-26 12:46 | XR_ITS ---
WS: [id number] SCREENING DEXA SCAN [employer] CLINICAL INFORMATION: ASYMPTOMATIC POST MENOPAUSAL COMPARISON: 2017 FINDINGS: The L1-L4 bone mineral density measures 1.034 g/cm2. This corresponds to a T score score of -1.2 and Z score of 0.2. Left femoral neck bone mineral density measures 0.649 g/cm2. This corresponds to a T score of -2.9 an d Z score of -1.8. Right femoral neck bone mineral density measures 0.657 g/cm2. This corresponds to a T score -2.8of an d Z score of -1.7. Mean femoral neck bone mineral density measures 0.653 g/cm2. This corresponds to a T score of -2.8 an d Z score of -1.7. XR/XR DEXA axial skeleton* [id number] IMPRESSION: Osteopenia lumbar spine. Osteoporosis femoral necks. Patient's FRAX calculated 10 year probability for major osteoporotic fracture i s 22.1 % and osteoporotic hip fracture is 5.2%. Since 2017 bone mineral density in the lumbar spine has increased 8.7%. In the femoral necks, bone mineral density has decreased -11.8%.
== END 2022-09-26 12:39 | disposition home or self-care (01) ==
LOC: RAD 12:39
PROVIDERS: PCP Nurse Practitioner Family; Visit Provider Nurse Practitioner Family
DX: Z78.0 Asymptomatic menopausal state (principal); M85.88 Other specified disorders of bone density and structure, other site; M81.0 Age-related osteoporosis without current pathological fracture
CPT/HCPCS: 77080

== ENCOUNTER → 2022-10-29 13:39 | Outpatient (BNVA) | payer BC, SELFPAY | PROVIDERS: PCP Nurse Practitioner Family; Visit Provider Specialist | DX: S83.201D Bucket-handle tear of unspecified meniscus, current injury, left knee, subsequent encounter (principal); S82.121D Displaced fracture of lateral condyle of right tibia, subsequent encounter for closed fracture with routine healing; W19.XXXD Unspecified fall, subsequent encounter | CPT/HCPCS: 73560; 73565 ==

== ENCOUNTER 2022-12-01 13:26 | Outpatient (CLI) | payer BC, SELFPAY ==
--- NOTE | 2022-12-01 13:33 | MM_ITS ---
WS: [id number] BILATERAL 3D TOMOSYNTHESIS DIGITAL SCREENING MAMMOGRAPHY WITH CAD CLINICAL INFORMATION: SCREENING HISTORY: Screening mammogram. No current complaints. COMPARISON: November 05, 2021 TECHNIQUE: Bilateral CC and MLO views. FINDINGS: Scattered fibroglandular densities bilaterally. No suspicious focal mass, asymmetry, calcifications, or architectural distortion. No evidence of malignancy. Vascular calcification. Lucent centered calci fication LEFT breast. MM/[place] [id number] IMPRESSION: BI-RADS: 2-Benign FOLLOW UP: 1 Year Follow-up Recommend return to annual screening mammography.
== END 2022-12-01 13:27 | disposition home or self-care (01) ==
LOC: RAD 13:29
PROVIDERS: PCP Nurse Practitioner Family; Visit Provider Nurse Practitioner Family
DX: Z12.31 Encounter for screening mammogram for malignant neoplasm of breast (principal)
CPT/HCPCS: 77063; 77067

== ENCOUNTER 2022-12-04 12:52 | Outpatient (CLI) | payer BC, SELFPAY ==
--- NOTE | 2022-12-04 13:06 | MR_ITS ---
WS: [id number] MRI RIGHT KNEE HISTORY: meniscus tear COMPARISON: Knee radiograph 10/29/2022. Anterior cruciate ligament: Discontinuity of the ACL fibers distally. There is thinning of the ACL. V edmar suspicious for distal ACL tear although the remaining fibers are normal orientation. Posterior cruciate ligament: Intact. Medial collateral ligament: Small amount of fluid along the MCL consistent with a mild sprain. No tea r. Posterior lateral corner structures: Intact. Medial menisci: Abnormal signal in the posterior horn. Diffusely abnormal signal consistent with a co mplex tear. Partially extruded anterior horn. Lateral meniscus: Small caliber abnormal anterior horn. Intrasubstance degeneration throughout the po sterior horn. Extensor mechanism: Distal quadriceps tendon and patellar tendons are intact. Fluid and soft tissue: Small joint effusion. Small Pearson's cyst. Osseous and articular structures: Patellofemoral compartment: Mild narrowing of patellofemoral joint space. Mild chondromalacia. No jumana ma. Medial compartment: Moderate narrowing medial compartment with loss of cartilage. Marginal osteophyte s and subchondral irregularities. Lateral compartment: Moderate narrowing with loss of cartilage. Osteophytes along the joint line. Larger osteophytes in the posterior femoral condyles. MR/MR knee RT wo con* [id number] IMPRESSION: 1. Moderate medial and lateral compartment joint space narrowing with loss of cartilage and osteophytosis. 2. Mild patellofemoral joint space narrowing. 3. Distal ACL is not identified. Suspect distal ACL tear although the remainin g fibers are normally oriented. 4. Small Pearson's cyst. 5. Diffusely abnormal signal throughout the posterior horn medial meniscus. 6. Partially extruded anterior horn medial meniscus. 7. Abnormal anterior horn of the lateral meniscus. Very small caliber and susp ect complex tear.
== END 2022-12-04 12:53 | disposition home or self-care (01) ==
LOC: RAD 12:54
PROVIDERS: PCP Nurse Practitioner Family; Visit Provider Specialist
DX: S83.206A Unspecified tear of unspecified meniscus, current injury, right knee, initial encounter (principal); M71.21 Synovial cyst of popliteal space [Baker], right knee; X58.XXXA Exposure to other specified factors, initial encounter
CPT/HCPCS: 73721

== ENCOUNTER 2023-05-20 08:57 | Outpatient (CLI) | payer BC, SELFPAY ==
--- NOTE | 2023-05-20 09:16 | US_ITS ---
WS: [id number] US transvaginal [id number] HISTORY: PELVIC PAIN/ABDOMINAL BLOATING COMPARISON: None available. Uterus: 5.7 cm x 3.0 cm x 1.8 cm. Normal size anteverted uterus. No fibroid or mass. Endometrium: 0.4 cm. Normal. Very small amount of fluid distending the endometrial canal. Right ovary: 1.6 cm x 1.7 cm x 0.9 cm. Normal size and vascularity, no cystic or solid masses. Left ovary: 1.7 cm x 1.6 cm x 1.6 cm. Normal size. No solid or cystic mass. Vascularity is difficult to pickling tank operator due to the deep location within the pelvis. No free fluid in the cul-de-sac. IMPRESSION: Normal transvaginal pelvic ultrasound.
== END 2023-05-20 08:58 | disposition home or self-care (01) ==
PROVIDERS: PCP Nurse Practitioner Family; Visit Provider Nurse Practitioner Family
DX: R10.2 Pelvic and perineal pain (principal); R14.0 Abdominal distension (gaseous)
CPT/HCPCS: 76830

== ENCOUNTER 2023-06-11 09:30 | Outpatient (CLI) | payer BC, SELFPAY ==
--- NOTE | 2023-06-11 09:52 | XR_ITS ---
WS: [id number] Exam: XR ribs RT 2V* [id number] Date/Time of Exam: 06/11/2023 9:58 AM Reason For Exam: R SIDED RIB PAIN There is a nondisplaced fracture involving the lateral aspect of the RIGHT fourth rib. No pneumothora x noted. No pleural or pulmonary reactive changes. The lungs are bilaterally clear. Normal cardiomedi astinal silhouette. IMPRESSION: 1. Nondisplaced RIGHT fourth rib fracture. No pneumothorax or other significant finding.
--- NOTE | 2023-06-11 09:52 | XR_ITS ---
WS: [id number] Exam: XR shoulder RT min 2V* [id number] Date/Time of Exam: 06/11/2023 9:58 AM Reason For Exam: R SHOULDER PAIN No acute fracture or dislocation. Minimal degenerative change at the AC joint and glenohumeral joint. Normal soft tissues. IMPRESSION: 1. Minimal degenerative change.
== END 2023-06-11 09:31 | disposition home or self-care (01) ==
PROVIDERS: PCP Nurse Practitioner Family; Visit Provider Family Medicine
DX: S22.31XA Fracture of one rib, right side, initial encounter for closed fracture (principal); X58.XXXA Exposure to other specified factors, initial encounter; Y93.9 Activity, unspecified; Y92.9 Unspecified place or not applicable; Y99.9 Unspecified external cause status; M25.511 Pain in right shoulder; R07.81 Pleurodynia
CPT/HCPCS: 71100; 73030

== ENCOUNTER 2023-06-30 15:33 | Outpatient (CLI) | payer BC, SELFPAY ==
--- NOTE | 2023-06-30 15:50 | CTR_ITS ---
PROCEDURE INFORMATION: Exam: CT Abdomen And Pelvis With Contrast Exam date and time: 06/30/2023 5:08 PM Age: 67 years old Clinical indication: Abdominal pain; Epigastric; Additional info: Abdominal pain, lower, epigastric pain TECHNIQUE: Imaging protocol: Computed tomography of the abdomen and pelvis with contrast. Radiation optimization: All CT scans at this facility use at least one of these dose optimization techniques: automated exposure control; mA and/or kV adjustment per patient size (includes targeted exams where dose is matched to clinical indication); or iterative reconstruction. Contrast material: OMNIPAQUE 350; Contrast volume: 95 ml; Contrast route: INTRAVENOUS (IV); REPORTING DATA: Count of CT and Cardiac NM exams in prior 12 months: This patient has received [address] and 0 known cardiac nuclear medicine studies in the 12 months prior to the current study. COMPARISON: US transvaginal [id number] 05/20/2023 9:37 AM RADIATION DOSE METRICS: Total DLP (mGy-cm): 339.77 FINDINGS: Lungs: Lung bases are clear. Liver: The liver is normal. Gallbladder and bile ducts: The gallbladder is normal. There is no biliary dilation. Pancreas: There is mild atrophy of the pancreas. The pancreatic parenchyma is mildly atrophic. The pancreatic duct is dilated to 6 mm in the body, head and neck. No pancreatic mass is visible. Spleen: Splenic size is normal. There are scattered calcifications consistent with healed granulomas. Adrenal glands: The left adrenal gland is normal. The right adrenal gland is partially obscured. No adrenal mass is visible. Kidneys and ureters: The kidneys are unremarkable. No hydronephrosis or stones. No ureteral dilation. Stomach and bowel: There is mucosal thickening in the gastric cardia and loss of normal rugal pattern at the cardia. The gastric lumen is nondistended. The small bowel is nondilated. The ascending and transverse colon is unremarkable. There is diffuse luminal decompression in the descending and proximal sigmoid colon which limits assessment of mucosal thickness. There is mild fat stranding and fascial thickening associated with the descending and proximal sigmoid colon. Appendix: The proximal portion of the appendix is of normal caliber. The distal portion is obscured. Intraperitoneal space: Small volume loculated perihepatic ascites. Abnormal reticulonodular thickening of the distal portion of the greater omentum in the right lower quadrant. Ill-defined subdiaphragmatic nodular densities superior to the spleen measuring up to 10 mm (see coronal series 5, image 25). See also axial series 3 image 10 and 13. No intraperitoneal free air. Vasculature: There is mild aortic atherosclerotic disease. The portal, splenic and superior mesenteric veins are patent. Lymph nodes: There is no lymphadenopathy in the retroperitoneum, mesentery, pelvis or inguinal regions. Urinary bladder: The urinary bladder is decompressed, preventing meaningful evaluation of wall thickness. Reproductive: The uterus is unremarkable. There is no adnexal mass or large cyst. Bones/joints: There is moderate degenerative disease in the lumbar spine. The pelvis and hips are unremarkable. Soft tissues: There is a small right femoral hernia containing intermediate density material. There is a small fat containing left inguinal hernia. CT/CT abdomen pelvis w con* [id number] IMPRESSION: 1. Mucosal thickening and loss of normal rugal pattern in the gastric cardia. Possible malignant neoplasm or gastritis. Consider endoscopy. 2. Findings suspicious for peritoneal carcinomatosis including omental thickening in the right lower quadrant. Differential diagnosis includes chronic sequelae of omental infarction. However, omental infarction would not explain loculated perihepatic fluid, fascial thickening in the left paracolic gutter and subdiaphragmatic nodules adjacent to the spleen. 3. Limited assessment of the descending and sigmoid colon due to luminal decompression. There is surrounding fat stranding and fascial thickening which may represent colitis or could be related to peritoneal carcinomatosis. 4. Pancreatic atrophy and diffuse mild ductal dilation of unknown significance. No pancreatic mass is visible. 5. Incidental findings above.
[2023-06-30] MEDS: iohexol 350 mg/mL 500 mL Btl (per mL) PO (17:16)
[2023-06-30] MEDS: iohexol 350 mg/mL 500 mL Btl (per mL) IV (17:16)
== END 2023-06-30 15:34 | disposition home or self-care (01) ==
PROVIDERS: PCP Nurse Practitioner Family; Visit Provider Nurse Practitioner Family
DX: R10.13 Epigastric pain (principal); R10.30 Lower abdominal pain, unspecified; R93.5 Abnormal findings on diagnostic imaging of other abdominal regions, including retroperitoneum
CPT/HCPCS: 74177; Q9967

== ENCOUNTER 2025-05-10 14:24 | Emergency (ER) | payer BC, SELFPAY ==
[2025-05-10] VITALS (15 sets, daily range): BP systolic 97–174; BP diastolic 56–100; PULSE 56–84; RESP 16–22; TEMP 36.2–36.8; O2SAT 91–100
--- NOTE | 2025-05-10 16:45 | CTR_ITS ---
PROCEDURE INFORMATION: Exam: CT Abdomen And Pelvis With Contrast Exam date and time: 05/10/2025 6:20 PM Age: 69 years old Clinical indication: Abdominal pain; Generalized; Prior surgery; Surgery date: 6+ months; Surgery type: Hysterectomy TECHNIQUE: Imaging protocol: Computed tomography of the abdomen and pelvis with contrast. Radiation optimization: All CT scans at this facility use at least one of these dose optimization techniques: automated exposure control; mA and/or kV adjustment per patient size (includes targeted exams where dose is matched to clinical indication); or iterative reconstruction. Contrast material: OMNIPAQUE 350; Contrast volume: 100 ml; Contrast route: INTRAVENOUS (IV); COMPARISON: CT abdomen pelvis w con* [id number] 06/30/2023 5:08 PM RADIATION DOSE METRICS: Total DLP (mGy-cm): 509.53 FINDINGS: Liver: Normal. No mass. Gallbladder and biliary ducts: Normal. No calcified stones. No ductal dilation. Pancreas: Redemonstration of prominence of the pancreatic duct mildly. No discrete pancreatic mass is seen. Spleen: Sequela of chronic granulomatous disease involving the spleen. Adrenal glands: Normal. No mass. Kidneys and ureters: Normal. No hydronephrosis. Stomach and bowel: Moderate amount of retained stool in the colon from constipation. No bowel obstruction. Redemonstration of gastric wall thickening which may be related to underdistention. Appendix: No secondary signs of acute appendicitis. Intraperitoneal space: Scant ascites. Previously described area of matted omental thickening of the right lower quadrant related to possible peritoneal carcinomatosis has improved and there is only some residual thickening remaining. Vasculature: Unremarkable. No abdominal aortic aneurysm. Lymph nodes: Unremarkable. No enlarged lymph nodes. Urinary bladder: Unremarkable as visualized. Reproductive: The uterus is surgically absent. Bones/joints: Degenerative changes of the visualized spine. Soft tissues: Unremarkable. CT/CT abdomen pelvis w con* [id number] IMPRESSION: 1. No definite acute intra-abdominal or intrapelvic process. 2. Previously described area of omental thickening in the right lower quadrant has since improved and there is only a residual amount of remaining. 3. Scant ascites. 4. Gastric wall thickening which may be related to underdistention if not already biopsied as was recommended prior.
--- NOTE | 2025-05-10 16:45 | CTR_ITS ---
PROCEDURE INFORMATION: Exam: CT Head Without Contrast Exam date and time: 05/10/2025 6:11 PM Age: 69 years old Clinical indication: Pain; Headache TECHNIQUE: Imaging protocol: Computed tomography of the head without contrast. Radiation optimization: All CT scans at this facility use at least one of these dose optimization techniques: automated exposure control; mA and/or kV adjustment per patient size (includes targeted exams where dose is matched to clinical indication); or iterative reconstruction. COMPARISON: No relevant prior studies available. RADIATION DOSE METRICS: Total DLP (mGy-cm): 1050.48 FINDINGS: Brain: No hemorrhage. Mild periventricular and subcortical white matter hypodensities likely represent chronic small vessel ischemic changes. No mass effect. Cerebral ventricles: No ventriculomegaly. Paranasal sinuses: Visualized sinuses are unremarkable. No fluid levels. Mastoid air cells: Visualized mastoid air cells are well aerated. Bones: Unremarkable. No acute fracture. Soft tissues: Unremarkable. CT/CT head wo con* [id number] IMPRESSION: No acute intracranial abnormality.
--- NOTE | 2025-05-10 16:46 | XRR_ITS ---
PROCEDURE INFORMATION: Exam: XR Chest Exam date and time: 05/10/2025 4:48 PM Age: 69 years old Clinical indication: Pain; Chest pressure TECHNIQUE: Imaging protocol: Radiologic exam of the chest. Views: 1 view. COMPARISON: CR XR ribs RT 2V* [id number] 06/11/2023 10:00 AM FINDINGS: Tubes, catheters and devices: Left subclavian Port-A-Cath tip is in the mid SVC. Lungs: Calcified granulomas in the right mid lung. No focal consolidation. Pleural spaces: Unremarkable. No pleural effusion. No pneumothorax. Heart/Mediastinum: Unremarkable. No cardiomegaly. Diaphragm: Asymmetric elevation of the right hemidiaphragm. Bones/joints: Unremarkable. XR/XR chest 1V [id number] IMPRESSION: No acute cardiopulmonary findings.
--- NOTE | 2025-05-10 16:48 | W.ED.DENTAL ---
HPI - Dental/Oral General: Chief complaint: Dental/Oral Stated complaint: [place] Time Seen by Provider: 05/10/25 16:26 History of Present Illness: Chief complaint swelling of the tongue and a sore on her tongue. She states it started around 2:00 this afternoon with the swelling but she noticed the sore this morning when she woke up. She has also had some crampy lower abdominal pain for several days. Related Data Home Medications ?Medication ?Instructions ?Recorded ?Confirmed aspirin 81 mg tablet,delayed 81 mg PO DAILY 01/01/21 05/02/25 release (Adult Aspirin Regimen) Held on 03/15/21. Instructions: Resume on 04/12/21. Resume after 30 days of full dose aspirin biotin 1 mg capsule 1 mg PO DAILY 06/07/21 05/02/25 calcium carbonate (Feng-Mint) 260 mg PO DAILY 06/07/21 05/02/25 multivitamin 1 tab PO QAM 06/07/21 05/02/25 omega-3 fatty acids 1,000 mg 1,000 mg PO DAILY 06/07/21 05/02/25 capsule (Fish Oil Concentrate) Saccharomyces boulardii 250 mg 250 mg PO DAILY 07/12/21 05/02/25 capsule (Daily Probiotic (S. boulardii)) hydrochlorothiazide 12.5 mg capsule 12.5 mg PO DAILY 05/22/22 05/02/25 bevacizumab 25 mg/mL intravenous IV .Q 3 Weeks. 08/02/24 05/02/25 solution (Avastin) Previous Rx's ?Medication ?Instructions ?Recorded enmanuel brace, right knee #1 ea 08/11/22 HINGED KNEE BRACE #1 ea 09/24/22 dextroamphetamine-amphetamine 30 30 mg PO QAM 30 days #30 tabs 01/26/25 mg tablet dextroamphetamine-amphetamine 30 30 mg PO QAM 30 days #30 tabs 05/02/25 mg tablet fluoxetine 20 mg capsule 60 mg (3 x 20 mg) PO DAILY 30 days 05/02/25 #90 caps Allergies Allergy/AdvReac Type Severity Reaction Status Date / Time meloxicam AdvReac Intermediate Swelling & Verified 05/10/25 14:36 rash [facility]: Medical History (Updated 05/10/25 @ 20:24 by Eduin Samano MD) Attention and concentration deficit Sinusitis Sinus headache Allergic rhinitis Psychiatric care ADHD Anxiety and depression Surgical History H/O knee surgery Both - arthroscopic - torn meniscus Family History Other Diabetes Social History Smoking and tobacco/nicotine status: never used tobacco/nicotine Second hand smoke exposure: No Alcohol intake: never Substance/Drug Use: never Physical Exam Narrative: EXAM NARRATIVE: Patient is alert oriented no acute distress. She is breathing comfortably. Lung sounds are clear. Heart regular rhythm. Abdomen soft with some mild bilateral lower abdominal tenderness and right upper quadrant tenderness. No pitting edema in her legs. No calf tenderness. No rash in exposed areas. Patient has a sore on her lower lip and then she has swelling of the left side of the tongue and she has what appears to be a contusion or discoloration of the left side of her tongue. There is no definite break in the skin. Dentition appears normal. Posterior pharynx is clear. No stridor. Moist mucous membranes. Conjunctive is normal. She is alert and oriented and has intact motor in her arms and legs and intact cerebellar function. No ataxia. Skin is warm well-perfused. Full range ocular motion. Pupils briskly reactive to light. Course Vital Signs: Vital signs: Vital Signs Temperature 98.3 F 05/10/25 14:30 Pulse Rate 69 05/10/25 18:30 Respiratory Rate 16 05/10/25 16:30 Blood Pressure 151/89 05/10/25 16:30 Pulse Oximetry 100 05/10/25 18:30 Oxygen Delivery Me thod Room Air 05/10/25 18:30 MDM - Dental/Oral Medical Decision Making Patient presents complaining of swelling of the left side of her tongue. She denies starting any new medications except for she got 2 new chemo meds about 2 weeks ago and then she had her second chemo treatment a week ago. She states this morning she woke up and had a sore on the left side of her tongue and then she noticed it was swelling around 2:00 this afternoon although she states now its gotten a lot better. She denies any itching or rash. No trouble breathing. No swelling in her throat. She states she does have a dull headache but denies any head trauma or injury. She denies history of seizures. She denies biting her tongue that she is aware of. She was not incontinence of urine when she woke up this morning. She did not have any muscular soreness that was new. She did have the dull headache when she woke up. She states she has been waking up with some lower abdominal pain at night for several days. She has ovarian cancer and had some spots show up on her PET scan recently for which she was started back on chemotherapy. No vomiting or diarrhea. No black or bloody stools. No change in urination. No focal numbness weakness or tingling her arms or legs. Consideration for allergic reaction but less likely by exam and history. Consideration for angioedema secondary to allergic response. She cannot tell me her medications but there is not an JOSE G inhibitor or ARB on her medication list. She has a clear bruise or discoloration of the tongue which could be from hemorrhage into that tongue from biting her tongue. I question her regarding the possibility that she had a seizure in her sleep. She denies incontinence. She did have a dull headache. She denies having any metastatic disease to her brain or anywhere else in all the areas that lit up on her PET scan she states were down in the pelvis. Patient did have some blood on the back of her throat. She states she has been having some bloody noses intermittently. I see some dried blood on the septum bilaterally. I do not see abnormal bruising or petechiae on her skin or bleeding from the gums. Will check her platelets. Will check CBC. Will check her hemoglobin. I recommended getting CT of the head and abdomen pelvis and chest x-ray. I ordered PT PTT. However urinalysis with her lower abdominal pain. Acute cholecystitis, cystitis, adverse effects of chemotherapy, extremely broad differential. She states they told her she may get sores on her tongue or in her mouth from the chemotherapy which may be causing the swelling. Isolated angioedema unlikely with the abnormal discoloration and changes to the tongue. CT head abdomen pelvis negative for significant acute process per radiology. Chest x-ray negative for acute process per radiology. Patient's white count is 1.58 and she is neutropenic and has platelet count of 20. PT PTT unremarkable. Urinalysis not suggestive of infection. No fever no clear source for infection but patient neutropenic and thrombocytopenic. She has a bleeding into her tongue and some nasal bleeding. I went and rechecked on her and there is no further bleeding in the back of her throat or from her nose. She states her tongue is almost completely back to normal. It is markedly improved on exam. Patient is asking for discharge home. I discussed admission to the hospital and her neutropenia and thrombocytopenia and swelling of the tongue and reasoning. Patient states she has animals at home she has to take care of and she cannot be admitted. I called consulted with Dr. Carbajal patent litigation associate for oncology here. He recommends administering transfusion of 1 unit of platelets in then feels patient can be discharged home and does not need antibiotics without having a fever. I advised the patient follow-up on all her test results and to call her oncologist at [facility] first thing in the morning tomorrow and to follow-up for recheck. I advised immediate return to the emergency room if she develops a fever or not feeling well or bleeding or swelling of her tongue or throat or trouble breathing or any worsening or change in condition. Patient capable and informed and declines admission and is requesting outpatient management. Patient given platelets and will discharge as per her request. Lab Data 05/10/25 17:22 05/10/25 17:22 Radiology Impressions Abdomen/Pelvis CT 05/10/25 16:45 IMPRESSION: 1. No definite acute intra-abdominal or intrapelvic process. 2. Previously described area of omental thickening in the right lower quadrant has since improved and there is only a residual amount of remaining. 3. Scant ascites. 4. Gastric wall thickening which may be related to underdistention if not already biopsied as was recommended prior. Head CT 05/10/25 16:45 IMPRESSION: No acute intracranial abnormality. Chest X-Ray 05/10/25 16:46 IMPRESSION: No acute cardiopulmonary findings. Laboratory Results WBC 1.58 10^3/uL (3.29-11.43) L 05/10/25 17:22 RBC 3.04 10^6/uL (3.85-5.65) L 05/10/25 17:22 Hgb 9.60 g/dL (11.27-16.99) L 05/10/25 17:22 Hct 28.5 % (36-47) L 05/10/25 17:22 MCV 93.8 fl (85-98) 05/10/25 17: MCH 31.6 pg (27-33) 05/10/25 17: MCHC 33.7 g/dL (30-55) 05/10/25 17: RDW 11.5 % (12.1-15.1) L 05/10/25 17: Plt Count 20 10^3/cmm (157-399) L* 05/10/25 17: MPV 10.8 fL (7.4-10.4) H 05/10/25 17: Neut % (Auto) 29.7 % 05/10/25 17: Lymph % (Auto) 68.4 % 05/10/25: Davison % (Auto) 1.9 % 05/10/25: Eos % (Auto) 0.0 % 05/10/25 17: Baso % (Auto) 0.0 % 05/10/25: Neut # (Auto) 0.47 10^3/uL (1.8-7.7) L* 05/10/25 17: Lymph # (Auto) 1.1 10^3/uL (0.8-4.8) 05/10/25 17: Davison # (Auto) 0.0 10^3/uL (0.2-0.9) L 05/10/25 17: Eos # (Auto) 0.0 10^3/uL (0.0-0.8) 05/10/25: Baso # (Auto) 0.0 10^3/uL (0.0-0.1) 05/10/25: Nucleated RBC % (auto) 0 % 05/10/25: Nucleated RBCs # 0.0 /100WBC 05/10/25: PT 12.80 SECONDS (12.1-14.9) 05/10/25: INR 0.90 (0.8-1.2) 05/10/25 17: APTT 33.3 SECONDS (23.9-36.7) 05/10/25 17: Sodium 136 mmol/L (136-145) 05/10/25: Potassium 4.7 mmol/L (3.5-5.1) 05/10/25 17:22 Chloride 100 mmol/L (98-107) 05/10/25 17:22 Carbon Dioxide 25 mmol/L (22-29) 05/10/25 17:22 Anion Gap 15.7 (5-19) 05/10/25 17:22 BUN 21 mg/dL (8-23) 05/10/25 17:22 Creatinine 0.6 mg/dL (0.5-0.9) 05/10/25 17:22 GFR Calculation 99.7 mL/min (90-130) 05/10/25 17:22 Glucose 94 mg/dL (65-115) 05/10/25 17:22 Calculated Osmolality 285 mOsm/kg (285-295) 05/10/25 17:22 Calcium 9.2 mg/dL (8.5-10.5) 05/10/25 17:22 Total Bilirubin 0.2 mg/dL (0.15-1.2) 05/10/25 17:22 AST 26 U/L (0-32) 05/10/25 17:22 ALT 38 U/L (0-33) H 05/10/25 17:22 Alkaline Phosphatase 216 U/L (35-105) H 05/10/25 17:22 Total Protein 6.3 g/dL (6.6-8.7) L 05/10/25 17:22 Albumin 3.5 g/dL (3.5-5.2) 05/10/25 17:22 Globulin 2.8 g/dL (1.3-4.6) 05/10/25 17:22 Lipase 19 U/L (13-60) 05/10/25 17:22 Urine Color Yellow (Yellow) 05/10/25 16:54 Urine Appearance Clear (CLEAR) 05/10/25 16:54 Urine pH 8.0 (5-7) A 05/10/25 16:54 Ur Specific Okay 1.015 (1.005-1.030) 05/10/25 16:54 Urine Protein Trace (Negative) A 05/10/25 16:54 Urine Glucose (UA) Negative (Normal) 05/10/25 16:54 Urine Ketones Negative (Negative) 05/10/25 16:54 Urine Blood Negative (Negative) 05/10/25 16:54 Urine Nitrate Negative (Negative) 05/10/25 16:54 Urine Bilirubin Negative (Negative) 05/10/25 16:54 Urine Urobilinogen 1.0 mg/dL (Negative) 05/10/25 16:54 Ur Leukocyte Esterase Negative (Negative) 05/10/25 16:54 Urine RBC 3-5 /hpf (0-2) 05/10/25 16:54 Urine WBC 0-5 /hpf (0-5) 05/10/25 16:54 Ur Squamous Epith Cells 0-5 /hpf (0-5) 05/10/25 16:54 Amorphous Sediment Not Reportable 05/10/25 16:54 Urine Bacteria None seen /hpf (NONE) 05/10/25 16:54 Hyaline Casts 1.21 /lpf 05/10/25 16:54 Blood Type O Positive 05/10/25 19:00 Rho(D) Type Rh positive 05/10/25 19:00 Antibody Screen Negative 05/10/25 19:00 All radiology interpretation(s) finalized by discharge Discharge Plan Discharge Patient Disposition: Home Clinical Impression: Thrombocytopenia, Neutropenia, Swollen tongue, Acute anterior epistaxis Condition: Stable Prescriptions: No Action aspirin [Adult Aspirin Regimen] 81 mg tablet,delayed release (DR/EC) 81 mg PO DAILY omega-3 fatty acids [Fish Oil Concentrate] 1,000 mg capsule 1,000 mg PO DAILY calcium carbonate [Feng-Mint] 260 mg calcium (650 mg) tablet,chewable 260 mg PO DAILY multivitamin Tablet 1 tab PO QAM biotin 1 mg capsule 1 mg PO DAILY Saccharomyces boulardii [Daily Probiotic (S. boulardii)] 250 mg capsule 250 mg PO DAILY Avastin 25 mg/mL solution IV .Q 3 Weeks. hydrochlorothiazide 12.5 mg capsule 12.5 mg PO DAILY (DME) enmanuel brace, right knee See Rx Instructions .Route .MEDSUPPLY Qty: 1 0RF Rx Instructions: Set 30-60. (DME) HINGED KNEE BRACE See Rx Instructions .Route .MEDSUPPLY Qty: 1 0RF Rx Instructions: As directed fluoxetine 20 mg capsule 60 mg PO DAILY 30 Days Qty: 90 2RF dextroamphetamine-amphetamine 30 mg tablet 30 mg PO QAM 30 Days Qty: 30 0RF dextroamphetamine-amphetamine 30 mg tablet 30 mg PO QAM 30 Days Qty: 30 0RF Discharge Orders: Discharge ED (Routine); Ordered 05/10/25 Ordered By: Eduin Samano Referrals: Rebecca Diego FNP [Primary Care Provider, Nurse Practitioner] Patient Instructions: Opioid Safety, Pain Management, Patient Portal & Boris Instructions Activity Restrictions/Additional Instructions: Return to the emergency room immediately if you develop swelling of your tongue, swelling of your throat, difficulty breathing, fever, abnormal bleeding or bruising, bleeding from your nose, not feeling well, cough chest pain or shortness of breath, new abdominal pain or worsening abdominal pain, getting worse instead of better, any concerns. Please follow-up on your lab and CT results with your doctor. Please call your oncologist first thing in the morning for close follow-up. Neutropenic precautions as discussed. Avoid activities that could lead to trauma or injury as discussed. Return immediately if you develop black or bloody stools. Do not take aspirin until advised otherwise by your doctor. Print Language: [place]ayan Coding Level of Care Code ED Advertising Sales Consultant for Louis Amaro
[2025-05-10 17:15] LABS: Glucose Urine UA Negative (Normal); Nitrate Urine Negative (Negative); Specific Gravity, Urine 1.015 (1.005-1.030)
[2025-05-10 17:20] LABS: Add Urine Microscopic? YES
[2025-05-10 17:47] LABS: Hematocrit 28.5 % (36-47); Hemoglobin 9.60 g/dL (11.27-16.99); Mean Corpuscular HGB Conc 33.7 g/dL (30-55); Mean Corpuscular Hemoglobin 31.6 pg (27-33); Mean Corpuscular Volume 93.8 fl (85-98); Nucleated Red Blood Cells % 0 %; Red Blood Count 3.04 10^6/uL (3.85-5.65); White Blood Count 1.58 10^3/uL (3.29-11.43)
[2025-05-10 17:50] LABS: INR 0.90 (0.8-1.2); Prothrombin Time 12.80 SECONDS (12.1-14.9)
[2025-05-10 17:51] LABS: Partial Thromboplastin Time 33.3 SECONDS (23.9-36.7)
[2025-05-10 17:56] LABS: Alanine Aminotransferase 38 U/L (0-33); Albumin Level 3.5 g/dL (3.5-5.2); Alkaline Phosphatase 216 U/L (35-105); Anion Gap 15.7 (5-19); Aspartate Amino Transferase 26 U/L (0-32); Blood Urea Nitrogen 21 mg/dL (8-23); Calcium 9.2 mg/dL (8.5-10.5); Carbon Dioxide 25 mmol/L (22-29); Chloride 100 mmol/L (98-107); Creatinine Clr Calc Pharmacy 63.1872; Globulin 2.8 g/dL (1.3-4.6); Glucose 94 mg/dL (65-115); Lipase 19 U/L (13-60); Osmolality Calculated 285 mOsm/kg (285-295); Potassium 4.7 mmol/L (3.5-5.1); Sodium 136 mmol/L (136-145); Total Protein 6.3 g/dL (6.6-8.7)
[2025-05-10 18:12] LABS: Platelet Count 20 10^3/cmm (157-399)
[2025-05-10 18:13] LABS: Slide Review Slide Review Perform
[2025-05-10] MEDS: iohexol 350 mg/mL 500 mL Btl (per mL) IV (18:24)
[2025-05-10] MEDS: diphenhydrAMINE 50 mg/mL SDV 1mL IVP (22:22)
--- NOTE | 2025-05-10 22:26 | PC.NURSE ---
Pt automation engineer light, answered call light and pt appeared diaphoretic, pt states I feel itchy, my hands are sweating, and I feel bad. Pt face appears flushed and sweaty, this nurse stopped the infusion and flushed IV site with NS, IV still intact and patent, pt then stated she was going to have diarrhea, and pt was assisted into restroom. PT is currently c/o nausea and has a splotchy red rash to body.
--- NOTE | 2025-05-10 22:41 | PC.NURSE ---
Platelet infusion was stopped due to patient complaints of nausea, diarrhea, diaphoresis. Dr Estrada was notified. Product and tubing were returned to lab. Appropriate labs were ordered. Patient was given medication to decrease symptoms.
[2025-05-10] MEDS: ondansetron 2 mg/ML SDV 2 mL 4 MG IVP (22:44)
[2025-05-10] MEDS: methylPREDNISolone sod succ 125 mg/2 mL INJ IVP (22:51)
--- NOTE | 2025-05-10 23:41 | PC.NURSE ---
PT report given to Tom MOREAU. Pt on cardiac sonographer, BP cuff, Call light within reach, Pt has bed rail x1, pt resting in bed at this time.
--- NOTE | 2025-05-11 00:20 | PM.HP ---
Providers/Chief Complaint Admitting Physician: Wei Johnson MD Primary Care Provider: Rebecca Diego Chief Complaint: Tongue is swollen History of Present Illness Aicha Devlin is a 69 year old female who had ovarian cancer diagnosed 2022 when her mesentery was inflamed or involved. She states this was found on a CT scan evaluating abdominal pain. She was thought to have stage IV cancer but ultimately biopsy showed no involvement in the mesentery. 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 She states she had been taking Avastin infusions and then her CA125 sarah. She was evaluated with multiple CT scans MRI and PET scan in the last 1 month with finding of abdominal involvement of cancer. She was treated with 2 infusions on a week 1 and 1 infusion on week 2 now with severe pancytopenia. Patient states her initial platelet count before this chemotherapy was 99 attributable to already being on Avastin. Today the patient came in because her tongue was swelling she states that its gone down. She was found to have thrombocytopenia and some bleeding so Dr. Carbajal recommended platelet transfusion but unfortunately she had a reaction to that and so she received Solu-Medrol 125 mg, Pepcid 40 mg and Benadryl 50 mg IV and now was referred for admission. Patient states that her red face and itching from the platelets has largely resolved. Platelets presumably still low Review of Systems Narrative: General no fevers chills weight gain weight loss Cardiovascular no palpitations edema or chest pain Respiratory no shortness of breath cough wheezing GI no diarrhea she does have tortuous colon some abdominal pain and constipation takes MiraLAX daily and has nausea but no vomiting. 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 Instructions: Resume on 04/12/21. Resume after 30 days of full dose aspirin biotin 1 mg capsule 1 mg PO DAILY 06/07/21 05/02/25 Unknown History calcium carbonate (Feng-Mint) 260 mg PO DAILY 06/07/21 05/02/25 Unknown History multivitamin 1 tab PO QAM 06/07/21 05/02/25 Unknown History omega-3 fatty acids 1,000 mg 1,000 mg PO DAILY 06/07/21 05/02/25 Unknown History capsule (Fish Oil Concentrate) Saccharomyces boulardii 250 mg 250 mg PO DAILY 07/12/21 05/02/25 Unknown History capsule (Daily Probiotic (S. boulardii)) hydrochlorothiazide 12.5 mg capsule 12.5 mg PO DAILY 05/22/22 05/02/25 Unknown History enmanuel brace, right knee #1 ea 08/11/22 05/02/25 Unknown Rx HINGED KNEE BRACE #1 ea 09/24/22 05/02/25 Unknown Rx bevacizumab 25 mg/mL intravenous IV .Q 3 Weeks. 08/02/24 05/02/25 Unknown History solution (Avastin) dextroamphetamine-amphetamine 30 30 mg PO QAM 30 days #30 tabs 01/26/25 05/02/25 Unknown Rx mg tablet dextroamphetamine-amphetamine 30 30 mg PO QAM 30 days #30 tabs 05/02/25 05/02/25 Unknown Rx mg tablet fluoxetine 20 mg capsule 60 mg (3 x 20 mg) PO DAILY 30 days 05/02/25 05/02/25 Unknown Rx #90 caps Allergies Allergy/AdvReac Type Severity Reaction Status Date / Time meloxicam AdvReac Intermediate Swelling & Verified 05/10/25 14:36 rash PFSH Acute PFSH: Medical History (Updated 05/11/25 @ 00:29 by Wei Johnson MD) Ovarian cancer Attention and concentration deficit Sinusitis Sinus headache Allergic rhinitis Psychiatric care ADHD Anxiety and depression Surgical History H/O knee surgery Both - arthroscopic - torn meniscus Family History Other Diabetes Social History (Updated 05/11/25 @ 00:25 by Wei Johnson MD) Smoking and tobacco/nicotine status: never used tobacco/nicotine Second hand smoke exposure: No Alcohol intake: current Alcohol intake frequency: holidays/special occasions only Substance/Drug Use: never Additional social history: 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 but 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 she wants full CODE STATUS but no prolonged life support as confirmed 05/11/2025 by Wei Johnson MD Vitals/I&O/Wt Last Vital Signs Temp 97.4 F L 05/10/25 22:01 Pulse 56 L 05/10/25 23:30 Resp 16 05/10/25 23:30 BP 150/92 05/10/25 23:30 Pulse Ox 98 05/10/25 23:30 O2 Del Method Room Air 05/10/25 23:30 05/10/25 05/10/25 05/11/25 14:59 22:59 06:59 Intake Total 0 / 0 Balance 0 / 0 Weight last 48 hrs Weight 68.039 kg Physical Exam Narrative: General well-developed well-nourished female in no acute cardiopulmonary distress CV regular rate and rhythm Lungs clear to auscultation bilaterally Abdomen positive bowel tones soft mild diffuse tenderness no rebound tenderness Groin no femoral adenopathy Oropharynx Mallampati 1 tongue underside with some erythema and evidence of inflammation see images Skin warm and dry Neck no adenopathy HENMT: OTHER: Data 05/10/25 17:22 05/10/25 17:22 Micro: Microbiology 05/10/25 19:02 Blood Culture - Preliminary Blood SPECIMEN COLLECTED 05/10/25 19:00 Blood Culture - Preliminary Blood SPECIMEN COLLECTED A&P Assessment and plan 1. Transfusion reaction: Patient received Solu-Medrol, Pepcid and Benadryl and is doing well. She be monitored overnight 2. Swollen tongue: Seems to have resolved see images there is inflammation but not obvious infection currently seems to have been healing rapidly 3. Thrombocytopenia: Platelet count in the morning and if still low transfusion is pending with a better crossmatch 4. Neutropenia: Neutropenic precautions and observation overnight 5. Ovarian cancer: Has been receiving chemotherapy comes in with pancytopenia no fevers. Per Dr. Carbajal no indication for antibiotics at this time PDMP PDMP Reviewed: Not Reviewed Attestations Medical Necessity Statement*: Patient is observed in the hospital and expected to be discharged within 1-2 midnights Coding Level of Care Code 95800 Diagnoses Transfusion reaction T80.92XA Swollen tongue R22.0 Thrombocytopenia D69.6 Neutropenia D70.9 Ovarian cancer C56.9 Time Spent (min) 55
[2025-05-11 02:50] VITALS: BP 155/88; PULSE 68; RESP 14; O2SAT 98
[2025-05-11 06:10] VITALS: BP 148/95; PULSE 71; RESP 16; O2SAT 97
[2025-05-11 06:58] LABS: Hematocrit 32.0 % (36-47); Hemoglobin 11.20 g/dL (11.27-16.99); Mean Corpuscular HGB Conc 35.0 g/dL (30-55); Mean Corpuscular Hemoglobin 31.5 pg (27-33); Mean Corpuscular Volume 90.1 fl (85-98); Nucleated Red Blood Cells % 0 %; Platelet Count 42 10^3/cmm (157-399); Red Blood Count 3.55 10^6/uL (3.85-5.65); White Blood Count 1.03 10^3/uL (3.29-11.43)
[2025-05-11 07:00] VITALS: BP 143/96; PULSE 65; O2SAT 94
--- NOTE | 2025-05-11 07:43 | PC.NURSE ---
MANAGER BRAND RN NOTIFIED THIS NURSE AT SHIFT CHANGE THAT PT WAS REQUESTING TO GO HOME IF POSSIBLE DUE TO FEELING BETTER. MANAGER BRAND MD WAS NOTIFIED AND REQUESTED A REPEAT CBC TO LOOK AT HER PLATELET LEVELS. THIS NURSE NOTIFIED DR. LANE, DAY SHIFT HOSPITALIST OF NEW LABS. NO NEW ORDERS AT THIS TIME.
--- NOTE | 2025-05-11 09:44 | P.DS_ITS ---
Discharge Providers Date of Admission: 05/11/25 00:00 Date of Discharge: May 11, 2025 Attending Provider at Admission: Wei Johnson MD Attending Provider at Discharge: Vivek Alfaro MD Primary Care Provider: Rebecca Diego Diagnoses at Discharge Discharge Diagnosis 1. Transfusion reaction: 2. Swollen tongue: 3. Thrombocytopenia: 4. Neutropenia: 5. Ovarian cancer: Reason for Visit Reason for Visit: Tongue is swollen Brief History: 69 year old female presenting with throm bocytopenia and tongue swelling. Hospital Course Hospital Course 1. Transfusion reaction: - attempted platelet transfusion was aborted because of transfusion reaction. - she received Solu-Medrol, Pepcid and Benadryl and is doing well. - Monitored overnight without new issues. 2. Swollen tongue: - currently resolved 3. Thrombocytopenia, acute on chronic - she has had low platelets 2/2 chemotherapy, dropped to 20 yesterday - no active bleeding. She reports easy bruising. - she had some epistaxis in the last few days, however this is currently resolved. - no significant mouth ecchymosis, she has small areas of ecchymosis under tongue without bleeding, no buccal ecchymosis. - she received steroid bolus in ER - Platelet count this AM increased to 42 with steroids - cont 40 mg oral dexamethasone daily for 4 days following discharge - follow up with her outpatient oncology 4. Neutropenia: Neutropenic precautions and observation overnight - likely 2/2 chemotherapy. - neutrophils increased slightly this AM. 5. Ovarian cancer: Has been receiving chemotherapy - pancytopenia without fevers. Per Dr. Carbajal no indication for antibiotics at this time Disposition - dischage planning for to. Physical Exam Const: COMMON NORMALS: no acute distress, average body habitus and patient oriented x3 HENMT: COMMON NORMALS: normocephalic, atraumatic and moist oral mucous membranes HEAD & SCALP: normocephalic and atraumatic OTHER: no buccal ecchymosis. Minimal spots of ecchymosis under tongue, no active bleeding. Eye: COMMON NORMALS: Equal, round and reactive pupils present and EOMs intact bilaterally PUPIL: Yes Equal, round and reactive pupils present Neck/C-Spine: COMMON NORMALS: full ROM and no lymphadenopathy Lymph: LYMPHATIC: no lymphadenopathy noted Chest: COMMONS NORMALS: normal inspection of the chest and normal palpation of entire chest wall Resp: COMMON NORMALS: normal respiratory effort, No use of accessory muscles and clear to auscultation bilaterally AUSCULTATION: clear to auscultation bilaterally Cardio: COMMON NORMALS: regular rate, regular rhythm, No gallops present (Cardio), No murmurs present (Cardio) and No rub (Cardio) RATE: regular rate RHYTHM: regular rhythm GI: COMMON NORMALS: Soft to palpation, No hepatosplenomegaly present and no masses PALPATION: Yes Soft to palpation and Yes No hepatosplenomegaly present Extremity: COMMON NORMALS: normal to inspection, full ROM and no joint enlargement Neuro: COMMON NORMALS: patient oriented x3 and CN's II-XII intact bilaterally Skin: NARRATIVE SKIN EXAM: some scattered ecchymoses, no active bleeding Discharge Data Studies Completed and Pending Completed Studies During Hospitalization Category Date Time Status CT abdomen pelvis w con* [id number] Stat Cat Scan 05/10/25 16:[address] head wo con* [id number] Stat Cat Scan 05/10/25 16:45 Completed XR chest 1V [id number] Stat Exams 05/10/25 16:46 Completed Pending at discharge Category Date Time Status Blood Culture Stat Lab 05/10/25 19:02 Results CBC Auto Diff [Complete Blood Count w/Auto] AM LABS Lab 05/12/25 04:00 Ordered Transfusion Reaction Stat Lab 05/10/25 22:35 Results Radiology Impressions Abdomen/Pelvis CT 05/10/25 16:45 IMPRESSION: 1. No definite acute intra-abdominal or intrapelvic process. 2. Previously described area of omental thickening in the right lower quadrant has since improved and there is only a residual amount of remaining. 3. Scant ascites. 4. Gastric wall thickening which may be related to underdistention if not already biopsied as was recommended prior. Head CT 05/10/25 16:45 IMPRESSION: No acute intracranial abnormality. Chest X-Ray 05/10/25 16:46 IMPRESSION: No acute cardiopulmonary findings. Laboratory Results WBC 1.03 10^3/uL (3.29-11.43) L 05/11/25 06:40 RBC 3.55 10^6/uL (3.85-5.65) L 05/11/25 06:40 Hgb 11.20 g/dL (11.27-16.99) L 05/11/25 06:40 Hct 32.0 % (36-47) L 05/11/25 06:40 MCV 90.1 fl (85-98) 05/11/25 06:40 MCH 31.5 pg (27-33) 05/11/25 06:40 MCHC 35.0 g/dL (30-55) 05/11/25 06:40 RDW 11.6 % (12.1-15.1) L 05/11/25 06:40 Plt Count 42 10^3/cmm (157-399) L D 05/11/25 06:40 MPV 11.1 fL (7.4-10.4) H 05/11/25 06:40 Neut % (Auto) 66.0 % 05/11/25 06:40 Lymph % (Auto) 32.0 % 05/11/25 06:40 Crook % (Auto) 1.0 % 05/11/25 06:40 Eos % (Auto) 0.0 % 05/11/25 06:40 Baso % (Auto) 0.0 % 05/11/25 06:40 Neut # (Auto) 0.68 10^3/uL (1.8-7.7) L* 05/11/25 06:40 Lymph # (Auto) 0.3 10^3/uL (0.8-4.8) L 05/11/25 06:40 Crook # (Auto) 0.0 10^3/uL (0.2-0.9) L 05/11/25 06:40 Eos # (Auto) 0.0 10^3/uL (0.0-0.8) 05/11/25 06:40 Baso # (Auto) 0.0 10^3/uL (0.0-0.1) 05/11/25 06:40 Nucleated RBC % (auto) 0 % 05/11/25 06:40 Nucleated RBCs # 0.0 /100WBC 05/11/25 06:40 PT 12.80 SECONDS (12.1-14.9) 05/10/25 17:22 INR 0.90 (0.8-1.2) 05/10/25 17:22 APTT 33.3 SECONDS (23.9-36.7) 05/10/25 17:22 Sodium 136 mmol/L (136-145) 05/10/25 17:22 Potassium 4.7 mmol/L (3.5-5.1) 05/10/25 17:22 Chloride 100 mmol/L (98-107) 05/10/25 17:22 Carbon Dioxide 25 mmol/L (22-29) 05/10/25 17:22 Anion Gap 15.7 (5-19) 05/10/25 17:22 BUN 21 mg/dL (8-23) 05/10/25 17:22 Creatinine 0.6 mg/dL (0.5-0.9) 05/10/25 17:22 GFR Calculation 99.7 mL/min (90-130) 05/10/25 17:22 Glucose 94 mg/dL (65-115) 05/10/25 17:22 Calculated Osmolality 285 mOsm/kg (285-295) 05/10/25 17:22 Calcium 9.2 mg/dL (8.5-10.5) 05/10/25 17:22 Total Bilirubin 0.2 mg/dL (0.15-1.2) 05/10/25 17:22 AST 26 U/L (0-32) 05/10/25 17:22 ALT 38 U/L (0-33) H 05/10/25 17:22 Alkaline Phosphatase 216 U/L (35-105) H 05/10/25 17:22 Total Protein 6.3 g/dL (6.6-8.7) L 05/10/25 17:22 Albumin 3.5 g/dL (3.5-5.2) 05/10/25 17:22 Globulin 2.8 g/dL (1.3-4.6) 05/10/25 17:22 Lipase 19 U/L (13-60) 05/10/25 17:22 Urine Color Yellow (Yellow) 05/10/25 16:54 Urine Appearance Clear (CLEAR) 05/10/25 16:54 Urine pH 8.0 (5-7) A 05/10/25 16:54 Ur Specific Philip 1.015 (1.005-1.030) 05/10/25 16:54 Urine Protein Trace (Negative) A 05/10/25 16:54 Urine Glucose (UA) Negative (Normal) 05/10/25 16:54 Urine Ketones Negative (Negative) 05/10/25 16:54 Urine Blood Negative (Negative) 05/10/25 16:54 Urine Nitrate Negative (Negative) 05/10/25 16:54 Urine Bilirubin Negative (Negative) 05/10/25 16:54 Urine Urobilinogen 1.0 mg/dL (Negative) 05/10/25 16:54 Ur Leukocyte Esterase Negative (Negative) 05/10/25 16:54 Urine RBC 3-5 /hpf (0-2) 05/10/25 16:54 Urine WBC 0-5 /hpf (0-5) 05/10/25 16:54 Ur Squamous Epith Cells 0-5 /hpf (0-5) 05/10/25 16:54 Amorphous Sediment Not Reportable 05/10/25 16:54 Urine Bacteria None seen /hpf (NONE) 05/10/25 16:54 Hyaline Casts 1.21 /lpf 05/10/25 16:54 Blood Type O Positive 05/10/25 19:00 Rho(D) Type Rh positive 05/10/25 19:00 Antibody Screen Negative 05/10/25 19:00 Reaction Clerical Check No discrepancy 05/10/25 22:35 Pre-Trans Blood Type Op 05/10/25 22:35 Post-Trans Blood Type O Positive 05/10/25 22:35 Post-Tx Visible Hemolys No hemolysis 05/10/25 22:35 Post-Trans ISAIAH Negative 05/10/25 22:35 Vitals Last Vital Signs Temp 97.4 F L 05/10/25 22:01 Pulse 65 05/11/25 07:00 Resp 16 05/11/25 06:10 BP 143/96 05/11/25 07:00 Pulse Ox 94 05/11/25 07:00 O2 Del Method Room Air 05/11/25 07:00 Discharge Plan Discharge Patient Disposition: Home Condition: Stable Prescriptions: New dexamethasone 20 mg tablet 40 mg PO DAILY Qty: 8 0RF Continued calcium carbonate [Feng-Mint] 260 mg calcium (650 mg) tablet,chewable 260 mg PO DAILY multivitamin Tablet 1 tab PO QAM biotin 1 mg capsule 1 mg PO DAILY Saccharomyces boulardii [Daily Probiotic (S. boulardii)] 250 mg capsule 250 mg PO DAILY hydrochlorothiazide 12.5 mg capsule 12.5 mg PO DAILY (DME) enmanuel brace, right knee See Rx Instructions .Route .MEDSUPPLY Qty: 1 0RF Rx Instructions: Set 30-60. (DME) HINGED KNEE BRACE See Rx Instructions .Route .MEDSUPPLY Qty: 1 0RF Rx Instructions: As directed fluoxetine 20 mg capsule 60 mg PO DAILY 30 Days Qty: 90 2RF dextroamphetamine-amphetamine 30 mg tablet 30 mg PO QAM 30 Days Qty: 30 0RF tramadol 50 mg tablet 50 mg PO QID PRN (Reason: Severe Pain (Scale Score 7-10)) alprazolam 0.25 mg tablet 0.25 mg PO TID PRN (Reason: panic attacks) temazepam 15 mg capsule 15 mg PO BEDTIME PRN (Reason: Insomnia) lisinopril 5 mg tablet 5 mg PO DAILY mupirocin 2 % ointment See Rx Instructions .ROUTE .COMPLEX Rx Instructions: APPLY THREE TIMES DAILY TO RASH FOR 1 WEEK OR UNTIL LESIONS ARE HEALED. fluticasone propionate 50 mcg/actuation spray,suspension 1 spray INTRANASAL BID [place]-3 Fish Oil 300-1,000 mg Capsule 1 cap PO DAILY Discharge Order = DC NOW: Discharge Order (Routine); Ordered 05/11/25 Ordered By: Vivek Alfaro Referrals: Rebecca Diego FNP [Primary Care Provider, Nurse Practitioner] Discharge Diet: Usual diet Discharge Activity: Resume usual activity Patient Instructions: Opioid Safety, Pain Management, Patient Portal & Boris Instructions Activity Restrictions/Additional Instructions: Return to the emergency room immediately if you develop swelling of your tongue, swelling of your throat, difficulty breathing, fever, abnormal bleeding or bru ising, bleeding from your nose, not feeling well, cough chest pain or shortness of breath, new abdominal pain or worsening abdominal pain, getting worse instead of better, any concerns. Please follow-up on your lab and CT results with your doctor. Please call your oncologist first thing in the morning for close follow-up. Neutropenic precautions as discussed. Avoid activities that could lead to trauma or injury as discussed. Return immediately if you develop black or bloody stools. Do not take aspirin until advised otherwise by your doctor. Discharge Attestations Time Spent in Discharge Care*: greater than 30 min Specific Discharge Activities: educating patient, educating and/or supporting family/caregiver, discussing with pcp/other providers, discussing with mental health case manager/social workers/dc planners, documenting/other paperwork and evaluating patient/reviewing data Quality Metrics Clinical Quality Measures [ No reported AMI, CVA or VTE this stay] Coding Level of Care Code Acute Code for Chg Fwd Diagnoses Transfusion reaction T80.92XA Swollen tongue R22.0 Thrombocytopenia D69.6 Neutropenia D70.9 Ovarian cancer C56.9
[2025-05-11 10:00] VITALS: BP 151/88; PULSE 70; O2SAT 94
[2025-05-11 10:41] VITALS: BP 148/85; PULSE 76; O2SAT 94
== END 2025-05-11 10:41 | disposition home or self-care (01) ==
LOC: ER 05-11 00:22 → ER IP 05-11 03:53
PROVIDERS: Emergency Medicine; Internal Medicine; Emergency Provider Emergency Medicine; PCP Nurse Practitioner Family
DX: D69.6 Thrombocytopenia, unspecified (principal); D70.9 Neutropenia, unspecified; K14.8 Other diseases of tongue; R04.0 Epistaxis; Z79.82 Long term (current) use of aspirin
CPT/HCPCS: 36415; 70450; 71045; 74177; 80053; 80503; 81001; 83690; 85025; 85610; 85730; 86850; 86900; 87040; J1200; J2405; J2919; J3490; J9999; P9035

== ENCOUNTER 2025-09-04 12:32 | Emergency (ER) | payer BC, SELFPAY ==
[2025-09-04] VITALS (7 sets, daily range): BP systolic 119–150; BP diastolic 80–93; PULSE 64–82; TEMP 36.8; O2SAT 94–97; BMI 26.5
--- NOTE | 2025-09-04 13:03 | CT_ITS ---
WS: [id number] CT CHEST, ABDOMEN AND PELVIS WITH CONTRAST HISTORY: abd pain, abd distention, short of breath, history of ovarian cancer. TECHNIQUE: Contiguous 5 mm axial imaging performed through the chest, abdomen and pelvis with IV contrast, oral contrast has not been provided. Coronal and sagittal reformats chest. Coronal and sagittal reformats through the abdomen and pelvis. All CT scans at [facility] use at least one of these dose optimization techniques: automated exposure control; mA and/or kV adjustment per patient size (includes targeted exams where dose is matched to clinical indication); or iterative reconstruction. CONTRAST: Omnipaque 350; 100 mL IV. DLP: 825.70 mGy.cm COMPARISON: 05/10/2025, 06/30/[address]: Platelike atelectasis at the lung bases and in the RIGHT middle lobe. There are a few benign granulomata. No mass identified. Normal size aorta with mild intimal thickening. Normal pulmonary artery. Heart size is normal. No pericardial or pleural effusions. No mediastinal or hilar adenopathy. Mildly thickened distal esophagus. Slightly improved gastric wall thickening as compared to 06/30/2023. Abdomen CT: Normal size liver and spleen. No intrahepatic duct dilatation. Normal portal vein. Normal gallbladder. Splenic and hepatic granulomata. Pancreas demonstrates mild atrophy. Pancreatic duct is dilated but similar to the prior studies. No pancreatic head mass. No adrenal mass. No renal mass or obstruction. Mild atherosclerosis aorta. Small to moderate amount of ascites. Enhancement of the peritoneal lining. Stomach is not distended. No small bowel obstruction. There is mild enhancement of the small bowel wall. No colon obstruction. Appendix is not identified. Surgical clips are noted in the RIGHT lower quadrant. Previously described carcinomatosis significantly decreased. Pelvic CT: Free fluid in the pelvis with peripheral enhancement. There is fluid extending into the RIGHT inguinal canal but no GI tract. Urinary bladder is not distended. No destructive bone lesions. CT/CT chest abdpel [id number]/*[id number] IMPRESSION: 1. Small to moderate amount of ascites which has increased since 05/10/2025. Di ffuse peritoneal lining enhancement. Peritoneal enhancement can be seen with in fectious peritonitis. 2. Mild hyperemia of the small bowel mucosa. Consider acute enteritis. 3. No GI tract obstruction. 4. Fluid in the RIGHT inguinal canal. 5. Mild distal esophageal wall thickening which has been previously described extending into the cardia. 6. No renal obstruction.
--- NOTE | 2025-09-04 13:06 | W.ED.ABDPA2 ---
HPI - Abdominal Pain General: Chief Complaint: Abdominal Pain Stated Complaint: fluid build up in abd Time Seen by Provider: 09/04/25 12:38 Source: patient and old records reviewed Mode of arrival: ambulatory Limitations: no limitations History of Present Illness: Patient is a 69-year-old female with past medical history of ovarian cancer presenting to the emergency department complaining of abdominal pain and abdominal distention worsening over the past month or so. States that symptoms began after she gave herself a Neulasta shot in June, symptoms have been present since and steadily worsening. She is currently undergoing chemotherapy at [facility] in [place] for her ovarian cancer, has had 2 such chemotherapy sessions since the pain began and states that this has only made it worse. Has never had any fluid drained off of her abdomen in the past, but states that she was once told by previous provider that she may require this in the future if she continues to have fluid buildup. She is not having any fevers, does not complain of any nausea or vomiting or diarrhea, no constipation, and no other pertinent symptoms altogether. Has been making urine normally. Pain is noted to be diffuse, states that when she lays down she feels it all over but when she stands up she feels the pain primarily to the lower abdomen. Has been taking tramadol for pain, states this has not been helping recently. At this time denies needing any pain and nausea medications. MD elicited complaint: abdominal pain and other (abd distention) Pertinent past history: other (ovarian cancer) Onset (ago): month(s) Pain Consistency: constant Severity: severe Quality: fullness Related Data Home Medications ?Medication ?Instructions ?Recorded ?Confirmed biotin 1 mg capsule 1 mg PO DAILY 06/07/21 08/01/25 calcium carbonate (Feng-Mint) 260 mg PO DAILY 06/07/21 08/01/25 multivitamin 1 tab PO QAM 06/07/21 08/01/25 Saccharomyces boulardii 250 mg 250 mg PO DAILY 07/12/21 08/01/25 capsule (Daily Probiotic (S. boulardii)) hydrochlorothiazide 12.5 mg capsule 12.5 mg PO DAILY 05/22/22 08/01/25 alprazolam 0.25 mg tablet 0.25 mg PO TID PRN panic attacks 05/11/25 08/01/25 fluticasone propionate 50 1 spray intranasal BID 05/11/25 08/01/25 mcg/actuation nasal spray,suspension lisinopril 5 mg tablet 5 mg PO DAILY 05/11/25 08/01/25 mupirocin 2 % topical ointment See Rx Instructions .Route .COMPLEX 05/11/25 08/01/25 omega-3s 300 [id number] 1 cap PO DAILY 05/11/25 08/01/25 [id number] oil 1,000 mg capsule (Columb[place]-3 Fish Oil) temazepam 15 mg capsule 15 mg PO BEDTIME PRN Insomnia 05/11/25 08/01/25 tramadol 50 mg tablet 50 mg PO QID PRN Severe Pain 05/11/25 08/01/25 (Scale Score 7-10) Previous Rx's ?Medication ?Instructions ?Recorded enmanuel brace, right knee #1 ea 08/11/22 HINGED KNEE BRACE #1 ea 09/24/22 dexamethasone 20 mg tablet 40 mg (2 x 20 mg) PO DAILY #8 tabs 05/11/25 fluoxetine 20 mg capsule 60 mg (3 x 20 mg) PO DAILY 30 days 07/31/25 #90 caps dextroamphetamine-amphetamine 30 30 mg PO QAM 30 days #30 tabs 08/03/25 mg tablet Allergies Allergy/AdvReac Type Severity Reaction Status Date / Time meloxicam AdvReac Intermediate Swelling & Verified 09/04/25 12:42 rash PFSH ED PFSH: Medical History Ovarian cancer Attention and concentration deficit Sinusitis Sinus headache Allergic rhinitis Psychiatric care ADHD Anxiety and depression Surgical History H/O knee surgery Both - arthroscopic - torn meniscus Family History Other Diabetes Social History Smoking and tobacco/nicotine status: never used tobacco/nicotine Second hand smoke exposure: No Alcohol intake: current Alcohol intake frequency: holidays/special occasions only Substance/Drug Use: never Additional social history: 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[employer] facility she wants full CODE STATUS but no prolonged life support as confirmed 05/11/2025 by Wei Johnson MD Physical Exam Const: COMMON NORMALS: no acute distress, patient oriented x3, no limitations, healthy appearing, alert and well nourished GENERAL APPEARANCE: cooperative ORIENTATION/CONSCIOUSNESS: Yes awake OTHER: Mildly uncomfortable appearing Eye: COMMON NORMALS: Equal, round and reactive pupils present, EOMs intact bilaterally, conjunctivae normal and normal visual spangler by confrontation CONJUNCTIVA: Yes conjunctivae normal PUPIL: Yes Equal, round and reactive pupils present Neck/C-Spine: COMMON NORMALS: full ROM, supple and no meningeal signs Resp: COMMON NORMALS: normal respiratory effort, No retractions, No use of accessory muscles and clear to auscultation bilaterally AUSCULTATION: clear to auscultation bilaterally, no crackles, no rales, no rhonchi and no wheezes Cardio: COMMON NORMALS: regular rate, regular rhythm, No gallops present (Cardio), No clicks present (Cardio), No murmurs present (Cardio) and No rub (Cardio) RATE: regular rate RHYTHM: regular rhythm GI: COMMON NORMALS: Soft to palpation, No hepatosplenomegaly present and no masses AUSCULTATION: Yes normoactive bowel sounds PALPATION: Yes Soft to palpation and Yes No hepatosplenomegaly present RECTAL EXAM: deferred OTHER: Diffuse mild tenderness to light palpation, mild distention. Negative fluid wave, no significant rebound tenderness Extremity: COMMON NORMALS: normal to inspection and full ROM Neuro: COMMON NORMALS: patient oriented x3, moves all extremities, no focal motor deficits and no sensory deficits noted SENSORIUM/ORIENTATION: Yes alert MENINGEAL SIGNS: Yes no meningeal signs Psych: COMMON NORMALS: mental status grossly normal, cooperative and speech normal SPEECH: Yes normal speech Skin: COMMON NORMALS: no rashes or lesions noted GENERAL SKIN EXAM: no rashes or lesions noted Course Vital Signs: Vital signs: Vital Signs Temperature 98.2 F 09/04/25 12:37 Pulse Rate 69 09/04/25 18:00 Blood Pressure 130/83 09/04/25 18:00 Pulse Oximetry 97 09/04/25 18:00 Oxygen Delivery Me thod Room Air 09/04/25 18:00 MDM - Abdominal Pain Medical Decision Making Patient is a known ovarian cancer patient presenting with gradually worsening abdominal distention over approximately 1 month. Vitals and systemic labs are reassuring. 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 Diagnostic paracentesis was performed; fluid analysis shows WBC 110 with 31% PMNs, and all of the parameters currently within normal limits, effectively ruling out spontaneous bacterial peritonitis. Serum studies demonstrate hypoalbuminemia and a low total protein, consistent with chronic illness and nutritional compromise. Given the absence of infection, hemodynamic instability, and lack of acute abdominal symptoms, inpatient admission not indicated at this time. Plan is for outpatient management, including oncology follow-up for further assessment, potential therapeutic paracentesis if symptomatic, and ongoing monitoring for disease progression or complications. Patient educated on red flag symptoms requiring urgent evaluation. Lab Data 09/04/25 13:07 09/04/25 13:07 Labs/Radiology: Radiology Impressions Chest/Abdomen/Pelvis CT 09/04/25 13:03 IMPRESSION: 1. Small to moderate amount of ascites which has increased since 05/10/2025. Diffuse peritoneal lining enhancement. Peritoneal enhancement can be seen with infectious peritonitis. 2. Mild hyperemia of the small bowel mucosa. Consider acute enteritis. 3. No GI tract obstruction. 4. Fluid in the RIGHT inguinal canal. 5. Mild distal esophageal wall thickening which has been previously described extending into the cardia. 6. No renal obstruction. Laboratory Results WBC 3.60 10^3/uL (3.29-11.43) 09/04/25 13:07 RBC 3.24 10^6/uL (3.85-5.65) L 09/04/25 13:07 Hgb 10.10 g/dL (11.27-16.99) L 09/04/25 13:07 Hct 30.4 % (36-47) L 09/04/25 13:07 MCV 93.8 fl (85-98) 09/04/25 13:07 MCH 31.2 pg (27-33) 09/04/25 13:07 MCHC 33.2 g/dL (30-55) 09/04/25 13:07 RDW 13.3 % (12.1-15.1) 09/04/25 13:07 Plt Count 324 10^3/cmm (157-399) 09/04/25 13:07 MPV 9.2 fL (7.4-10.4) 09/04/25 13:07 Neut % (Auto) 75.2 % 09/04/25 13:07 Lymph % (Auto) 20.0 % 09/04/25 13:07 Hubbard % (Auto) 3.9 % 09/04/25 13:07 Eos % (Auto) 0.0 % 09/04/25 13:07 Baso % (Auto) 0.6 % 09/04/25 13:07 Neut # (Auto) 2.71 10^3/uL (1.8-7.7) 09/04/25 13:07 Lymph # (Auto) 0.7 10^3/uL (0.8-4.8) L 09/04/25 13:07 Hubbard # (Auto) 0.1 10^3/uL (0.2-0.9) L 09/04/25 13:07 Eos # (Auto) 0.0 10^3/uL (0.0-0.8) 09/04/25 13:07 Baso # (Auto) 0.0 10^3/uL (0.0-0.1) 09/04/25 13:07 Nucleated RBC % (auto) 0 % 09/04/25 13:07 Nucleated RBCs # 0.0 /100WBC 09/04/25 13:07 Differential Comment Yes 09/04/25 16:34 Sodium 131 mmol/L (136-145) L 09/04/25 13:07 Potassium 4.0 mmol/L (3.5-5.1) 09/04/25 13:07 Chloride 97 mmol/L (98-107) L 09/04/25 13:07 Carbon Dioxide 21 mmol/L (22-29) L 09/04/25 13:07 Anion Gap 17.0 (5-19) 09/04/25 13:07 BUN 16 mg/dL (8-23) 09/04/25 13:07 Creatinine 0.6 mg/dL (0.5-0.9) 09/04/25 13:07 GFR Calculation 99.7 mL/min (90-130) 09/04/25 13:07 Glucose 102 mg/dL (65-115) 09/04/25 13:07 Calculated Osmolality 273 mOsm/kg (285-295) L 09/04/25 13:07 Calcium 8.7 mg/dL (8.5-10.5) 09/04/25 13:07 Total Bilirubin 0.2 mg/dL (0.15-1.2) 09/04/25 13:07 AST 22 U/L (0-32) 09/04/25 13:07 ALT 18 U/L (0-33) 09/04/25 13:07 Alkaline Phosphatase 144 U/L (35-105) H 09/04/25 13:07 C-Reactive Protein 127.2 mg/L (0.0-4.9) H 09/04/25 13:07 Total Protein 6.3 g/dL (6.6-8.7) L 09/04/25 13:07 Albumin 3.2 g/dL (3.5-5.2) L 09/04/25 13:07 Globulin 3.1 g/dL (1.3-4.6) 09/04/25 13:07 Lipase 18 U/L (13-60) 09/04/25 13:07 Urine Color Yellow (Yellow) 09/04/25 13:08 Urine Appearance Clear (CLEAR) 09/04/25 13:08 Urine pH 6.5 (5-7) 09/04/25 13:08 Ur Specific Victor 1.021 (1.005-1.030) 09/04/25 13:08 Urine Protein Trace (Negative) A 09/04/25 13:08 Urine Glucose (UA) Negative (Normal) 09/04/25 13:08 Urine Ketones Negative (Negative) 09/04/25 13:08 Urine Blood 1+ (Negative) A 09/04/25 13:08 Urine Nitrate Negative (Negative) 09/04/25 13:08 Urine Bilirubin Negative (Negative) 09/04/25 13:08 Urine Urobilinogen 0.2 mg/dL (Negative) 09/04/25 13:08 Ur Leukocyte Esterase Negative (Negative) 09/04/25 13:08 Urine RBC 6-10 /hpf (0-2) 09/04/25 13:08 Urine WBC 0-5 /hpf (0-5) 09/04/25 13:08 Ur Squamous Epith Cells 0-5 /hpf (0-5) 09/04/25 13:08 Amorphous Sediment Not Reportable 09/04/25 13:08 Urine Bacteria None seen /hpf (NONE) 09/04/25 13:08 Hyaline Casts 0-4 /lpf H 09/04/25 13:08 Fluid Color Yellow 09/04/25 16:34 Fluid Appearance Cloudy 09/04/25 16:34 Fluid WBC 110 /uL 09/04/25 16:34 Fluid RBC 1.000 10^3/uL 09/04/25 16:34 Fld Polynuclear WBCs # 0.035 09/04/25 16:34 Fld Polynuclear WBCs % 31.800 % 09/04/25 16:34 Fl Mononucl WBCs #(Auto) 0.075 09/04/25 16:34 Fl Mononuclear % Auto 68.200 % 09/04/25 16:34 Fld Crystal Laterality Not Reportable 09/04/25 16:34 Peritoneal Tot Protein 4.5 g/dL 09/04/25 16:34 Peritoneal Albumin 2.7 g/dL 09/04/25 16:34 Peritoneal LDH 473.0 U/L 09/04/25 16:34 Peritoneal Glucose 66.0 mg/dL 09/04/25 16:34 All radiology interpretation(s) finalized by discharge Discharge Plan Discharge Patient Disposition: Home Clinical Impression: Ascites, malignant Condition: Stable Prescriptions: No Action calcium carbonate [Feng-Mint] 260 mg calcium (650 mg) tablet,chewable 260 mg PO DAILY multivitamin Tablet 1 tab PO QAM biotin 1 mg capsule 1 mg PO DAILY Saccharomyces boulardii [Daily Probiotic (S. boulardii)] 250 mg capsule 250 mg PO DAILY hydrochlorothiazide 12.5 mg capsule 12.5 mg PO DAILY (DME) enmanuel brace, right knee See Rx Instructions .Route .MEDSUPPLY Qty: 1 0RF Rx Instructions: Set 30-60. (DME) HINGED KNEE BRACE See Rx Instructions .Route .MEDSUPPLY Qty: 1 0RF Rx Instructions: As directed fluoxetine 20 mg capsule 60 mg PO DAILY 30 Days Qty: 90 2RF dextroamphetamine-amphetamine 30 mg tablet 30 mg PO QAM 30 Days Qty: 30 0RF tramadol 50 mg tablet 50 mg PO QID PRN (Reason: Severe Pain (Scale Score 7-10)) alprazolam 0.25 mg tablet 0.25 mg PO TID PRN (Reason: panic attacks) temazepam 15 mg capsule 15 mg PO BEDTIME PRN (Reason: Insomnia) lisinopril 5 mg tablet 5 mg PO DAILY mupirocin 2 % ointment See Rx Instructions .ROUTE .COMPLEX Rx Instructions: APPLY THREE TIMES DAILY TO RASH FOR 1 WEEK OR UNTIL LESIONS ARE HEALED. fluticasone propionate 50 mcg/actuation spray,suspension 1 spray INTRANASAL BID [place]-3 Fish Oil 300-1,000 mg Capsule 1 cap PO DAILY dexamethasone 20 mg tablet 40 mg PO DAILY Qty: 8 0RF Discharge Orders: Discharge ED (Routine); Ordered 09/04/25 Ordered By: Angelo Rankin Referrals: Rebecca Diego FNP [Primary Care Provider, Nurse Practitioner] Patient Instructions: Patient Portal & Boris Instructions Activity Restrictions/Additional Instructions: Discharge Instructions Your Diagnosis: You were diagnosed with malignant ascites, which is fluid buildup in your abdomen caused by your ovarian cancer. Today, we safely removed approximately 2000 mL (about 2 quarts) of fluid from your abdomen using ultrasound guidance, which should help relieve your pain and discomfort. What to Expect at Home: - You should feel less abdominal pressure and pain after the fluid removal - Some mild discomfort at the procedure site is normal - You may notice improved breathing and appetite as the pressure on your organs decreases Medications: - Continue all your current medications as prescribed - Take any pain medications as directed by your healthcare team Activity: - You may resume your normal activities as tolerated - Rest when you feel tired - Avoid heavy lifting (more than 10 pounds) for 48 hours Follow-Up Care: - You must follow up with your oncologist later this week to discuss your pending laboratory results and continue your chemotherapy treatments - Your oncologist will help manage your ongoing cancer care and determine if additional fluid removal procedures are needed WHEN TO SEEK IMMEDIATE MEDICAL ATTENTION - Call 911 or go to the Emergency Department if you experience: - Fever of 100.4?F (38?C) or higher - this could indicate infection - Severe abdominal pain that is not relieved by your pain medications - Shortness of breath or difficulty breathing - Chest pain - Dizziness, lightheadedness, or fainting - Rapid heartbeat or heart palpitations - Confusion or altered mental status - Bleeding or significant fluid leakage from the procedure site - Redness, warmth, or swelling at the procedure site that worsens - Nausea and vomiting that prevents you from keeping down food or liquids - Rapid re-accumulation of abdominal fluid with severe bloating or distension - Inability to urinate or significant decrease in urine output Contact Your Oncologist's Office During Business Hours if you notice: - Gradual return of abdominal swelling or discomfort - Mild nausea or decreased appetite - Questions about your chemotherapy schedule - Any other concerns about your condition Important Reminders: - Keep all scheduled appointments with your oncologist - We are still waiting for some laboratory results from your fluid analysis, which your oncologist will review with you - Your chemotherapy treatments will continue as planned - Report any new or worsening symptoms to your healthcare team Number to call for Patient Records Questions? If you have any questions or concerns about these instructions, please contact your oncologist's office. Print Language: Hong Konger Coding Level of Care Code ED Psychologist Personnel for Louis Amaro
[2025-09-04 13:18] LABS: Hematocrit 30.4 % (36-47); Hemoglobin 10.10 g/dL (11.27-16.99); Mean Corpuscular HGB Conc 33.2 g/dL (30-55); Mean Corpuscular Hemoglobin 31.2 pg (27-33); Mean Corpuscular Volume 93.8 fl (85-98); Nucleated Red Blood Cells % 0 %; Platelet Count 324 10^3/cmm (157-399); Red Blood Count 3.24 10^6/uL (3.85-5.65); White Blood Count 3.60 10^3/uL (3.29-11.43)
[2025-09-04 13:27] LABS: Glucose Urine UA Negative (Normal); Nitrate Urine Negative (Negative); Specific Gravity, Urine 1.021 (1.005-1.030)
[2025-09-04 13:30] LABS: Add Urine Microscopic? YES
[2025-09-04 13:37] LABS: Alanine Aminotransferase 18 U/L (0-33); Albumin Level 3.2 g/dL (3.5-5.2); Alkaline Phosphatase 144 U/L (35-105); Anion Gap 17.0 (5-19); Aspartate Amino Transferase 22 U/L (0-32); Blood Urea Nitrogen 16 mg/dL (8-23); Calcium 8.7 mg/dL (8.5-10.5); Carbon Dioxide 21 mmol/L (22-29); Chloride 97 mmol/L (98-107); Creatinine Clr Calc Pharmacy 63.1872; Globulin 3.1 g/dL (1.3-4.6); Glucose 102 mg/dL (65-115); Lipase 18 U/L (13-60); Osmolality Calculated 273 mOsm/kg (285-295); Potassium 4.0 mmol/L (3.5-5.1); Sodium 131 mmol/L (136-145); Total Protein 6.3 g/dL (6.6-8.7)
[2025-09-04] MEDS: iohexol 350 mg/mL 500 mL Btl (per mL) IV (14:17)
--- NOTE | 2025-09-04 14:54 | US_ITS ---
WS: [id number] ULTRASOUND-GUIDED PARACENTESIS CLINICAL INFORMATION: abd pain, possible infected peritonitis COMPARISON: None. Procedure Informed consent: The risks, benefits, and alternatives of the procedure were discussed with the patient. Verbal and written consent was obtained. Timeout: A timeout was performed to confirm the correct patient, procedure, and site. Preparation: A suitable skin site was identified. The patient was prepped and draped in usual sterile fashion. Lidocaine 1% was used for local anesthesia. Catheter: 4 Georgian One-step Yueh catheter. Side: LEFT lower quadrant. Fluid Volume: 1800 ml Color: Clear yellow DISPOSITION: Discarded safely. Complications: None. Patient disposition: Discharged from the department in stable condition. US/US paracentesis abd w [id number] IMPRESSION: Uncomplicated ultrasound-guided paracentesis. Removal of 1800 cc
--- NOTE | 2025-09-04 16:48 | PC.NURSE ---
1800ML OF PERITONEAL FLUID REMOVED.
[2025-09-04 17:20] LABS: Body Fluid Polynuclear #Cells 0.035; Monocytes # Body Fluid 0.075; Mononuclear WBC Body Fluid % 68.200 %; Polynuclear WBC Body Fluid % 31.800 %
[2025-09-04 17:29] LABS: Apprearance, Body Fluid CLOUDY; Color, Body Fluid YELLOW
[2025-09-04 18:40] LABS: Albumin Peritoneal Fluid 2.7 g/dL; PATH Referral YES
== END 2025-09-04 19:03 | disposition home or self-care (01) ==
PROVIDERS: Emergency Provider Physician Assistant; PCP Nurse Practitioner Family
DX: R18.8 Other ascites (principal); Z85.43 Personal history of malignant neoplasm of ovary
CPT/HCPCS: 36415; 49083; 71260; 74177; 80053; 80503; 81001; 82042; 82945; 83615; 83690; 84157; 85025; 86140; 87040; 87070; 87075; 87205; 89050; 96360; 96361; 99285; J7040